=== PATIENT | male | born 1950 | race Caucasian/White ===

== ENCOUNTER 2017-07-26 12:38 | Emergency (ER) | payer MEDICARE ==
--- NOTE | 2017-07-26 13:04 | ER Document Report ---
ED Medical Screen (RME) - General Chief Complaint: Abdominal Pain Stated Complaint: STOMACH PAIN Time Seen by Provider: 07/26/17 12:44 Mode of Arrival: Ambulatory Information source: Patient TRAVEL OUTSIDE OF THE [place] IN LAST 30 DAYS: No - HPI Patient complains to provider of: Right lower quadrant abdominal pain Notes: 07/26/17 13:03 Patient is a 66-year-old male presenting to the emergency room complaining of right lower quadrant abdominal pain that started on Friday after he ate some fried chicken, he reports that on he took some milk of magnesia which assisted him and having a bowel movement, however his pain has persisted, he denies any fever, no nausea or vomiting - Related Data Allergies/Adverse Reactions: Penicillins Allergy (Verified 07/26/17 12:41) Past Medical History Renal/ Medical History: Denies: Hx Peritoneal Dialysis Physical Exam - Vital signs Vitals: Temp Pulse Resp BP Pulse Ox 98.0 F 72 18 142/79 H 96 07/26/17 12:41 07/26/17 12:41 07/26/17 12:41 07/26/17 12:41 07/26/17 12:41 Course - Vital Signs Vital signs: Temp Pulse Resp BP Pulse Ox 98.0 F 72 18 142/79 H 96 07/26/17 12:41 07/26/17 12:41 07/26/17 12:41 07/26/17 12:41 07/26/17 12:41
[2017-07-26 14:15] LABS: APPEARANCE,URINE CLEAR; BILIRUBIN,URINE NEGATIVE (NEGATIVE); GLUCOSE, URINE NEGATIVE (NEGATIVE); KETONES,URINE NEGATIVE (NEGATIVE); LEUKOCYTE ESTERASE,URINE NEGATIVE (NEGATIVE); NITRITE,URINE NEGATIVE (NEGATIVE); PROTEIN,URINE NEGATIVE (NEGATIVE); URINE SPECIFIC GRAVITY 1.021; UROBILINOGEN,URINE NEGATIVE mg/dL (<2.0)
[2017-07-26 14:16] LABS: ABSOLUTE EOSINOPHILS # (AUTO) 0.2 10^3/uL (0.0-0.6); ABSOLUTE LYMPHOCYTES (AUTO) 1.6 10^3/uL (0.5-4.7); ABSOLUTE MONOCYTES (AUTO) 0.5 10^3/uL (0.1-1.4); ABSOLUTE NEUT (AUTO) 3.6 10^3/uL (1.7-8.2); BASOPHILS % (AUTO) 0.8 % (0-2); EOSINOPHILS % (AUTO) 2.8 % (0-6); HEMATOCRIT 39.2 % (37.9-51.0); HEMOGLOBIN 13.5 g/dL (13.5-17.0); HGB HCT DIFFERENCE 1.3; LYMPHOCYTES % (AUTO) 27.3 % (13-45); MEAN CORPUSCULAR HEMOGLOBIN 32.2 pg (27.0-33.4); MEAN CORPUSCULAR HGB CONC 34.4 g/dL (32.0-36.0); MEAN CORPUSCULAR VOLUME 94 fl (80-97); MONOCYTES % (AUTO) 8.5 % (3-13); RED BLOOD COUNT 4.19 10^6/uL (4.35-5.55); RED CELL DISTRIBUTION WIDTH 13.7 % (11.5-14.0); SEGMENTED NEUTROPHILS % (AUTO) 60.6 % (42-78); WHITE BLOOD COUNT 5.9 10^3/uL (4.0-10.5)
[2017-07-26 14:34] LABS: ALANINE AMINOTRANSFERASE 40 U/L (21-72); ALBUMIN 4.3 g/dL (3.5-5.0); ALKALINE PHOSPHATASE 91 U/L (38-126); ANION GAP 13 (5-19); ASPARTATE AMINO TRANSFERASE 24 U/L (17-59); BILIRUBIN,DIRECT 0.3 mg/dL (0.0-0.4); BILIRUBIN,TOTAL 0.5 mg/dL (0.2-1.3); BLOOD UREA NITROGEN 20 mg/dL (7-20); CALCIUM 9.3 mg/dL (8.4-10.2); CARBON DIOXIDE 23 mmol/L (22-30); CHLORIDE 106 mmol/L (98-107); CREATININE RESULT 1.01 mg/dL (0.52-1.25); GLUCOSE 98 mg/dL (75-110); POTASSIUM 4.4 mmol/L (3.6-5.0); SODIUM 141.6 mmol/L (137-145)
--- NOTE | 2017-07-26 16:56 | RADIOLOGY REPORT (SQ) ---
EXAM DESCRIPTION: CT ABD/PELVIS WITH IV ONLY COMPLETED DATE/TIME: 07/26/2017 4:26 pm REASON FOR STUDY: Rlq pain COMPARISON: None. TECHNIQUE: CT scan of the abdomen and pelvis performed using helical scanning technique with dynamic intravenous contrast injection. No oral contrast. Images reviewed with lung, soft tissue, and bone windows. Reconstructed coronal and sagittal MPR images reviewed. Delayed images for evaluation of the urinary system also acquired. All images stored on PACS. All CT scanners at this facility use dose modulation, iterative reconstruction, and/or weight based d osing when appropriate to reduce radiation dose to as low as reasonably achievable (ALARA). [facility]: Dose Right [facility]: CareDose [facility]: Dose Right [facility]: Teradose 4D [facility]: [employer] CONTRAST TYPE AND DOSE: contrast/concentration: Isovue 370.00 mg/ml; Total Contrast Delivered: 100.0 ml; Total Saline Delivered: 72.0 ml RENAL FUNCTION: BUN 20; creatinine 1.01 RADIATION DOSE: Up-to-date CT equipment and radiation dose reduction techniques were employed. CTDIv ol: 20.0 - 20.5 mGy. DLP: 2114 mGy-cm.. LIMITATIONS: None. FINDINGS: LOWER CHEST: No significant findings. No nodules or infiltrates. LIVER: Normal size. Diffusely decreased attenuation, consistent with fatty infiltration. Incidental note is made of 2 simple cysts within the right and left lobes. SPLEEN: Normal size. No focal lesions. PANCREAS: No masses. No significant calcifications. No adjacent inflammation or peripancreatic fluid collections. Pancreatic duct not dilated. GALLBLADDER: No identified stones by CT criteria. No inflammatory changes to suggest cholecystitis. ADRENAL GLANDS: No significant masses or asymmetry. RIGHT KIDNEY AND URETER: No solid masses. There is a prominent nonobstructing nephroliths within th e right collecting system. No hydronephrosis or hydroureter. LEFT KIDNEY AND URETER: No solid masses. No significant calcifications. No hydronephrosis or hydr oureter. AORTA AND VESSELS: Note is made of focal ectasia of the infrarenal abdominal aorta; this is not meet strict imaging criteria for designation as an aneurysm. No dissection. Renal arteries, SMA, celiac wi thout stenosis. RETROPERITONEUM: No retroperitoneal adenopathy, hemorrhage or masses. BOWEL AND PERITONEAL CAVITY: No masses or inflammatory changes. No free fluid or peritoneal masses. APPENDIX: Normal. PELVIS: No mass. No free fluid. Normal bladder. ABDOMINAL WALL: No masses. No hernias. BONES: No significant or acute findings. OTHER: No other significant finding. IMPRESSION: NO SIGNIFICANT OR ACUTE FINDING IN THE ABDOMEN OR PELVIS ON CT SCAN WITH IV CONTRAST. TECHNICAL DOCUMENTATION: JOB ID: [id number] Quality ID # [id number]: Final reports with documentation of one or more dose reduction techniques (e.g., Au tomated exposure control, adjustment of the mA and/or kV according to patient size, use of iterative reconstruction technique) 2010 [employer]- All Rights Reserved
--- NOTE | 2017-07-26 17:07 | ER Document Report ---
ED GI/ - General Chief Complaint: Abdominal Pain Stated Complaint: STOMACH PAIN Time Seen by Provider: 07/26/17 12:44 Mode of Arrival: Ambulatory Information source: Patient Notes: 66 yo male c/o right lower abdominal ache on friday, felt full of gas first, localized to right side Friday. MOM . BM loose bm than normal, fri full bm, little this am. No fever. No nausea or vomiting. NO hx hernia. Does not feel bad. TRAVEL OUTSIDE OF THE [place] IN LAST 30 DAYS: No - Related Data Allergies/Adverse Reactions: Penicillins Allergy (Verified 07/26/17 12:41) Past Medical History - General Information source: Patient - Social History Smoking Status: Former Smoker Chew tobacco use (# tins/day): No Frequency of alcohol use: None Drug Abuse: None Lives with: Spouse/Significant other Family History: Reviewed & Not Pertinent - Past Medical History Cardiac Medical History: Reports: Hx Hypertension Renal/ Medical History: Denies: Hx Peritoneal Dialysis Surgical Hx: Negative Review of Systems - Review of Systems Constitutional: No symptoms reported EENT: No symptoms reported Cardiovascular: No symptoms reported Respiratory: No symptoms reported Gastrointestinal: See HPI Genitourinary: No symptoms reported Male Genitourinary: No symptoms reported Musculoskeletal: No symptoms reported Skin: No symptoms reported Hematologic/Lymphatic: No symptoms reported Neurological/Psychological: No symptoms reported Physical Exam - Vital signs Vitals: Temp Pulse Resp BP Pulse Ox 98.0 F 72 18 142/79 H 96 07/26/17 12:41 07/26/17 12:41 07/26/17 12:41 07/26/17 12:41 07/26/17 12:41 Interpretation: Normal - General General appearance: Appears well, Alert - HEENT Head: Normocephalic, Atraumatic Eyes: Normal Pupils: PERRL - Respiratory Respiratory status: No respiratory distress Chest status: Nontender Breath sounds: Normal Chest palpation: Normal - Cardiovascular Rhythm: Regular Heart sounds: Normal auscultation Murmur: No - Abdominal Inspection: Normal Distension: No distension Bowel sounds: Normal Tenderness: Nontender. No: Tender Organomegaly: No organomegaly Notes: no hernia - Back Back: Normal, Nontender - Extremities General upper extremity: Normal inspection, Nontender, Normal color, Normal ROM , Normal temperature General lower extremity: Normal inspection, Nontender, Normal color, Normal ROM , Normal temperature, Normal weight bearing. No: Jasper's sign - Neurological Neuro grossly intact: Yes Cognition: Normal Orientation: AAOx4 Shauna Coma Scale Eye Opening: Spontaneous [place] Coma Scale Verbal: Oriented [place] Coma Scale Motor: Obeys Commands [place] Coma Scale Total: 15 Speech: Normal Motor strength normal: LUE, RUE, LLE, RLE Sensory: Normal - Psychological Associated symptoms: Normal affect, Normal mood - Skin Skin Temperature: Warm Skin Moisture: Dry Skin Color: Normal Course - Re-evaluation Re-evalutation: 07/26/17 17:28 ct scan shows ectactic infrarenal aorta, called radioloist its 1.3 cm. spoke with pt about all the results. no specific findings for abdomina pain, no hernia when stands, abdomen nontender at this time. 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 dominguez gastroenterolgist Referrals: DAV DOMINGUEZ MD [ACTIVE STAFF] - Follow up as needed
[2017-07-26 18:33] VITALS: BP 136/74
== END 2017-07-26 18:31 | disposition home or self-care (01) ==
LOC: ER 12:38
DX: R10.31 Right lower quadrant pain (principal); I77.811 Abdominal aortic ectasia; K76.89 Other specified diseases of liver; R19.4 Change in bowel habit; I10 Essential (primary) hypertension; F17.200 Nicotine dependence, unspecified, uncomplicated; Z88.0 Allergy status to penicillin
CPT/HCPCS: 36415; 74177; 80053; 81001; 83690; 85025; 99284

== ENCOUNTER 2018-10-09 18:38 | Observation (INO) | payer MEDICARE ==
[2018-10-09] MEDS ORDERED: ASPIRIN 81 MG TABLET, CHEWABLE PO ONE (20:11)
[2018-10-09 20:42] LABS: ABSOLUTE EOSINOPHILS # (AUTO) 0.1 10^3/uL (0.0-0.6); ABSOLUTE LYMPHOCYTES (AUTO) 1.8 10^3/uL (0.5-4.7); ABSOLUTE MONOCYTES (AUTO) 0.4 10^3/uL (0.1-1.4); BASOPHILS % (AUTO) 0.7 % (0-2); EOSINOPHILS % (AUTO) 2.3 % (0-6); HEMATOCRIT 40.9 % (37.9-51.0); LYMPHOCYTES % (AUTO) 28.1 % (13-45); MEAN CORPUSCULAR HEMOGLOBIN 31.9 pg (27.0-33.4); MEAN CORPUSCULAR HGB CONC 34.2 g/dL (32.0-36.0); MEAN CORPUSCULAR VOLUME 93 fl (80-97); MONOCYTES % (AUTO) 6.6 % (3-13); PLATELET COUNT 201 10^3/uL (150-450); RED BLOOD COUNT 4.39 10^6/uL (4.35-5.55); SEGMENTED NEUTROPHILS % (AUTO) 62.3 % (42-78); TOTAL CELLS COUNTED % (AUTO) 100 %; WHITE BLOOD COUNT 6.5 10^3/uL (4.0-10.5)
[2018-10-09 20:57] LABS: ALANINE AMINOTRANSFERASE 31 U/L (21-72); ALBUMIN 4.5 g/dL (3.5-5.0); ALKALINE PHOSPHATASE 90 U/L (38-126); ANION GAP 10 (5-19); ASPARTATE AMINO TRANSFERASE 26 U/L (17-59); BILIRUBIN,DIRECT 0.2 mg/dL (0.0-0.4); BILIRUBIN,TOTAL 0.4 mg/dL (0.2-1.3); BLOOD UREA NITROGEN 18 mg/dL (7-20); CALCIUM 9.6 mg/dL (8.4-10.2); CARBON DIOXIDE 25 mmol/L (22-30); CHLORIDE 106 mmol/L (98-107); CREATINE KINASE 173 U/L (55-170); GLUCOSE 97 mg/dL (75-110); POTASSIUM 4.3 mmol/L (3.6-5.0); SODIUM 141.2 mmol/L (137-145); TOTAL PROTEIN 7.5 g/dL (6.3-8.2)
--- NOTE | 2018-10-09 20:58 | RADIOLOGY REPORT (SQ) ---
EXAM DESCRIPTION: CHEST SINGLE VIEW COMPLETED DATE/TIME: 10/09/2018 8:49 pm REASON FOR STUDY: chest pain COMPARISON: None. EXAM PARAMETERS: NUMBER OF VIEWS: One view. TECHNIQUE: Single frontal radiographic view of the chest acquired. RADIATION DOSE: NA LIMITATIONS: None. FINDINGS: LUNGS AND PLEURA: No opacities, masses or pneumothorax. No pleural effusion. MEDIASTINUM AND HILAR STRUCTURES: No masses. Contour normal. HEART AND VASCULAR STRUCTURES: Heart normal in size. Normal vasculature. BONES: No acute findings. HARDWARE: None in the chest. OTHER: No other significant finding. IMPRESSION: No acute abnormality of the lungs in AP projection. TECHNICAL DOCUMENTATION: JOB ID: [id number]- All Rights Reserved Reading location - IP/workstation name: [email or web address]
[2018-10-09 21:10] LABS: CREATINE KINASE MB 2.53 ng/mL (<4.55)
[2018-10-09 21:11] LABS: TROPONIN I < 0.012 ng/mL
--- NOTE | 2018-10-09 21:58 | ER Document Report ---
ED General - General Chief Complaint: Chest Pain Stated Complaint: CHEST PAIN Time Seen by Provider: 10/09/18 21:01 Notes: 67-year-old male with past history of coronary artery disease with cardiac stent in 2014 presents to the emergency department for chest pain that started a few days ago but became much worse today. He says that the pain is stabbing in nature, hurts when he is breathing and with movement, and radiates to his back and shoulders. He denied diaphoresis, nausea, vomiting, shortness of breath. Denies any recent illness. His table filler is based out of Dr. Kathy Singleton. Patient has not had a recent cardiac stress test, last was in 2014 prior to stenting. TRAVEL OUTSIDE OF THE [place] IN LAST 30 DAYS: No - Related Data Allergies/Adverse Reactions: Penicillins Allergy (Verified 10/09/18 18:45) Past Medical History - General Information source: Patient - Social History Smoking Status: Former Smoker Chew tobacco use (# tins/day): No Frequency of alcohol use: None Drug Abuse: None Family History: Reviewed & Not Pertinent Patient has suicidal ideation: No Patient has homicidal ideation: No - Past Medical History Cardiac Medical History: Reports: Hx Hypertension Renal/ Medical History: Denies: Hx Peritoneal Dialysis Past Surgical History: Reports: Hx Cardiac Surgery - Stent placement Jun 2015 Review of Systems - Review of Systems Constitutional: See HPI EENT: No symptoms reported Cardiovascular: See HPI Respiratory: See HPI Gastrointestinal: See HPI Genitourinary: No symptoms reported Male Genitourinary: No symptoms reported Musculoskeletal: No symptoms reported Skin: No symptoms reported Hematologic/Lymphatic: No symptoms reported Neurological/Psychological: No symptoms reported Physical Exam - Vital signs Vitals: Temp Pulse Resp BP Pulse Ox 98.9 F 73 16 134/70 H 96 10/09/18 18:51 10/09/18 18:51 10/09/18 18:51 10/09/18 18:51 10/09/18 18:51 Interpretation: Normal - Notes Notes: Reviewed vital signs and nursing note as charted by RN. CONSTITUTIONAL: Well-appearing, well-nourished, acting appropriately for age HEAD: Normocephalic, atraumatic, no swelling EYES: PERRL, Conjunctivae clear, no drainage, EOMI, no scleral icterus ENT: External ears without lesions, External auditory canal is patent, TMs without erythema, landmarks clear and well visualized, no rhinorrhea, Pharynx without erythema or lesions, no tonsillar hypertrophy, airway patent, mucous membranes pink and moist NECK: Supple, no cervical lymphadenopathy, no masses CARD: Regular rate and rhythm, no murmurs, no rubs, no gallops, capillary refill < 2 seconds, symmetric pulses RESP: The lungs are clear to auscultation bilaterally, no wheezing, no rales, no rhonchi. Respiratory rate and effort are normal, normal chest excursion. No respiratory distress, no retractions, no stridor, no nasal flaring, no accessory muscle use. ABD/GI: Normal bowel sounds, distended, soft, non-tender, no rebound, no guarding, no palpable organomegaly EXT: Normal ROM in all joints, non-tender to palpation, no effusions, no edema SKIN: Normal color for age and race, warm, dry, good turgor, no acute lesions noted NEURO: No facial asymmetry, moves all extremities equally, motor and sensory function intact Course - Re-evaluation Re-evalutation: 10/09/18 21:57 67-year-old male with history of coronary artery disease status post cardiac stent 15 years ago presents with chest pain that is been going on for a few days and became acutely worse today. He was concerned enough that he wanted to come to the emergency department for assessment. Patient does have hyperlipidemia and is a former smoker, therefore has significant risk factors concerning for cardiac etiology. Patient does take aspirin 81 mg daily, metoprolol, isosorbide Foard hydrate. He quit smoking in 2014 no EtOH no illicits. Initiating a cardiac workup. EKG showed no evidence of STEMI or evidence of ischemia. 10/09/18 23:14 Initial troponin negative. Chest x-ray showed no acute process. Second troponin ordered. Will then contact patient's table filler to discuss disposition. 10/10/18 02:58 Second troponin negative. Called hospitalist for telemetry observation and follow on stress testing. Dr. Goetz accepted patient - Vital Signs Vital signs: Temp Pulse Resp BP Pulse Ox 97.8 F 55 L 19 145/72 H 99 10/10/18 05:05 10/10/18 06:04 10/10/18 05:05 10/10/18 05:05 10/10/18 05:05 - Laboratory Result Diagrams: 10/09/18 20:30 10/09/18 20:30 Laboratory results interpreted by me: 10/09/18 20:30 Creatine Kinase 173 H Discharge - Discharge Clinical Impression: Chest pain Qualifiers: Chest pain type: unspecified Qualified Code(s): R07.9 - Chest pain, unspecified Condition: Stable Disposition: ADMITTED OBSERVATION Admitting Provider: Hospitalist Unit Admitted: Telemetry
[2018-10-10] MEDS ORDERED: MAGNESIUM HYDROXIDE SUSP 30 ML UDCUP PO PRN (03:42)
[2018-10-10] MEDS ORDERED: ONDANSETRON 4 MG TAB.RAPDIS PO PRN (03:42)
[2018-10-10] MEDS ORDERED: MAG HYDROX/AL HYDROX/SIMETH SUSP 30 ML UDCUP PO PRN (03:42)
[2018-10-10] MEDS ORDERED: GLUCAGON,HUMAN RECOMB 1 MG INJ SUBCUT PRN (03:42)
[2018-10-10] MEDS ORDERED: DEXTROSE 40% GEL 15 GM TUBE PO PRN ×2 (03:42)
[2018-10-10] MEDS ORDERED: DEXTROSE 50%-WATER 25 GM/50 ML DISP.SYRIN IV PRN ×2 (03:42)
[2018-10-10] MEDS ORDERED: ONDANSETRON HCL INJ/PF 4 MG/2 ML SDV IV PRN (03:42)
[2018-10-10] MEDS ORDERED: ACETAMINOPHEN 325 MG TABLET PO PRN (03:52)
[2018-10-10] MEDS ORDERED: NICOTINE 21 MG/24 HR PATCH.TD24 TD PRN (03:52)
[2018-10-10] MEDS ORDERED: NITROGLYCERIN 0.4 MG/TAB 25 TAB/BOTTLE SL PRN (03:52)
[2018-10-10] MEDS ORDERED: MORPHINE SULFATE 10 MG/ML INJ IV PRN ×3 (03:52)
[2018-10-10 05:00] LABS: FREE T3 3.88 pg/mL (2.77-5.27)
[2018-10-10 05:14] LABS: THYROID STIMULATING HORMONE 2.39 uIU/mL (0.47-4.68)
--- NOTE | 2018-10-10 06:12 | PDOC H&P ---
History of Present Illness Admission Date/PCP: 10/10/18 03:02 CHRIS ANTUNEZ MD Patient complains of: Chest pain History of Present Illness: MARGARET SOTO is a 67 year old male who presented to the emergency room with a 6-month history of chest pain. He admits that the pain has been intermittently present in episodes lasting a few seconds since its onset but it has significantly worsened over the last 72 hours prior to admission. The pain is now a severe, sharp stabbing left anterior central chest pain, worsened by taking a deep breath or twisting/turning movements of his chest and radiating into his left axilla and down the inside of the left upper arm. The pain has been present on a constant basis at some level for the last 3 days. He denies s imilar previous episodes of this type of pain and indicates that it is not like the pain of his coronary artery disease. He has not identified any additional aggravating or any ameliorating factors for his chest pain. In the emergency room he was found to have a normal cardiac enzymes x2 and an EKG that showed no evidence of acute myocardial injury or ischemia. Due to his past history of significant coronary artery disease requiring cardiac catheterization and stenting it was felt appropriate to admit the patient to observation status and perform Cardiolite stress test later this morning. Past Medical History Cardiac Medical History: Reports: Coronary Artery Disease, Hypertension Denies: DVT, Pulmonary Embolism Pulmonary Medical History: Denies: Asthma, Chronic Obstructive Pulmonary Disease (COPD), Sleep Apnea EENT Medical History: Reports: None Neurological Medical History: Denies: Hemorrhagic CVA, Ischemic CVA, Seizures Endocrine Medical History: Denies: Diabetes Mellitus Type 1, Diabetes Mellitus Type 2, Hyperthyroidism, Hypothyroidism Renal/ Medical History: Denies: Chronic Kidney Disease, Nephrolithiasis Malignancy Medical History: Reports: None GI Medical History: Denies: Cirrhosis, Hepatitis Musculoskeltal Medical History: Denies: Arthritis, Fibromyalgia Skin Medical History: Denies: Eczema, Psoriasis Psychiatric Medical History: Denies: Alcohol Dependency, Substance Abuse, Tobacco Dependency Traumatic Medical History: Reports: None Hematology: Denies: Anemia, Bleeding Tendencies Infectious Medical History: Denies: None Past Surgical History Past Surgical History: Reports: Cardiac Catheterization, Coronary Stent Social History Information Source: Patient Lives with: Spouse/Significant other Smoking Status: Former Smoker Frequency of Alcohol Use: Rare Hx Recreational Drug Use: No Drugs: None Hx Prescription Drug Abuse: No - Advance Directive Resuscitation Status: Full Code Surrogate healthcare decision maker:: Spouse Family History Family History: DM Parental Family History Reviewed: Yes Children Family History Reviewed: No Sibling(s) Family History Reviewed.: Yes Medication/Allergy Allergies/Adverse Reactions: Penicillins Allergy (Verified 10/09/18 18:45) Review of Systems Constitutional: ABSENT: chills, fever(s) Eyes: ABSENT: visual disturbances, other - Ocular pain Ears: ABSENT: hearing changes, other - Ear pain Nose, Mouth, and Throat: ABSENT: mouth pain, sore throat Cardiovascular: PRESENT: as per HPI, chest pain. ABSENT: dyspnea on exertion, edema, orthropnea, palpitations Respiratory: PRESENT: dyspnea. ABSENT: cough, hemoptysis, sputum Gastrointestinal: ABSENT: abdominal pain, constipation, diarrhea, nausea, vomiting Genitourinary: ABSENT: dysuria, hematuria Musculoskeletal: ABSENT: deformity, joint swelling Integumentary: ABSENT: pruritus, rash Neurological: ABSENT: confusion, convulsions, memory loss, syncope, tremor(s) Psychiatric: ABSENT: anxiety, depression Endocrine: ABSENT: cold intolerance, heat intolerance Hematologic/Lymphatic: ABSENT: easy bleeding, easy bruising Physical Exam Vital Signs: Temp Pulse Resp BP Pulse Ox 98.9 F 73 22 H 130/65 H 97 10/09/18 18:51 10/09/18 18:51 10/10/18 04:01 10/10/18 04:01 10/10/18 04:58 Intake & Output 10/08/18 10/09/18 10/10/18 23:59 23:59 23:59 Weight 117.5 kg General appearance: PRESENT: no acute distress, cooperative, obese Head exam: PRESENT: atraumatic, normocephalic Eye exam: PRESENT: conjunctiva pink, EOMI. ABSENT: scleral icterus Ear exam: PRESENT: normal external ear exam. ABSENT: bleeding Mouth exam: PRESENT: dry mucosa, neck supple Neck exam: ABSENT: thyromegaly, tracheal deviation Respiratory exam: PRESENT: chest wall tenderness - Palpation in the submammary area of the left breast reproduces the pain of chief complaint., clear to auscultation jocelyn, symmetrical, unlabored Cardiovascular exam: PRESENT: RRR. ABSENT: clicks, diastolic murmur, gallop, rubs, systolic murmur Pulses: PRESENT: normal radial pulses, normal dorsalis pedis pul Vascular exam: PRESENT: normal capillary refill. ABSENT: pallor GI/Abdominal exam: PRESENT: normal bowel sounds, soft Rectal exam: PRESENT: deferred Extremities exam: ABSENT: joint swelling, pedal edema Musculoskeletal exam: ABSENT: deformity, dislocation Neurological exam: PRESENT: alert, oriented to person, oriented to place, oriented to time, oriented to situation, CN II-XII grossly intact. ABSENT: motor sensory deficit Psychiatric exam: PRESENT: appropriate affect, normal mood Skin exam: PRESENT: dry, pallor, warm. ABSENT: jaundice, rash, urticaria Results Laboratory Results: 10/09/18 20:30 10/09/18 20:30 10/09/18 10/09/18 10/09/18 20:30 20:30 20:30 WBC 6.5 RBC 4.39 Hgb 14.0 Hct 40.9 MCV 93 MCH 31.9 MCHC 34.2 RDW 14.0 Plt Count 201 Seg Neutrophils % 62.3 Lymphocytes % 28.1 Monocytes % 6.6 Eosinophils % 2.3 Basophils % 0.7 Absolute Neutrophils 4.0 Absolute Lymphocytes 1.8 Absolute Monocytes 0.4 Absolute Eosinophils 0.1 Absolute Basophils 0.0 Sodium 141.2 Potassium 4.3 Chloride 106 Carbon Dioxide 25 Anion Gap 10 BUN 18 Creatinine 0.98 Est GFR ( Amer) > 60 Est GFR (Non-Af Amer) > 60 Glucose 97 Calcium 9.6 Total Bilirubin 0.4 AST 26 ALT 31 Alkaline Phosphatase 90 Total Protein 7.5 Albumin 4.5 TSH 2.39 Free T4 1.00 Free T3 pg/mL 3.88 10/09/18 10/09/18 10/10/18 20:30 20:30 00:36 Creatine Kinase 173 H CK-MB (CK-2) 2.53 Troponin I < 0.012 < 0.012 Impressions: Chest X-Ray 10/09/18 20:11 IMPRESSION: No acute abnormality of the lungs in AP projection. Assessment & Plan - Diagnosis (1) Pleuritic chest pain Is this a current diagnosis for this admission?: Yes Plan: Patient's pain would appear to be pleuritic in nature given the sharp stabbing character and the exacerbating factors. This will be managed with morphine sulfate administered intravenously on a sliding scale basis for pain control. (2) CAD (coronary artery disease) Qualifiers: Coronary Disease-Associated Artery/Lesion type: grindstone artery [place] vs. transplanted heart: grindstone heart Associated angina: angina presence unspecified Qualified Code(s): I25.10 - Atherosclerotic heart disease of grindstone coronary artery without angina pectoris Is this a current diagnosis for this admission?: Yes Plan: Patient will be admitted to observation status and serial cardiac enzyme evaluations and EKG assessments will be done. He will also undergo a Cardiolite stress test later this morning for further evaluation of his coronary artery disease status. (3) HTN (hypertension) Qualifiers: Hypertension type: essential hypertension Qualified Code(s): I10 - Essential (primary) hypertension Is this a current diagnosis for this admission?: Yes Plan: Patient will be maintained on his usual antihypertensive therapy after he has completed his Cardiolite stress test. (4) Obesity (BMI 30.0-34.9) Is this a current diagnosis for this admission?: Yes Plan: A dietary consultation will be obtained from the patient since he may receive instruction in lifestyle changes and diet changes to better enhance his cardiac health. - Time Time Spent: 30 to 50 Minutes Critical Time spent with patient: Less than 15 minutes Anticipated discharge: Home - Inpatient Certification Based on my medical assessment, after consideration of the patient's comorbidities, presenting symptoms, or acuity I expect that the services needed warrant INPATIENT care.: No I certify that my determination is in accordance with my understanding of Medicare's requirements for reasonable and necessary INPATIENT services [42 CFR 412.3e].: No Medical Necessity: Need For Continuous Telemetry Monitoring, Need for Pain Control
[2018-10-10 08:08] LABS: ABSOLUTE EOSINOPHILS # (AUTO) 0.2 10^3/uL (0.0-0.6); ABSOLUTE LYMPHOCYTES (AUTO) 1.7 10^3/uL (0.5-4.7); ABSOLUTE MONOCYTES (AUTO) 0.6 10^3/uL (0.1-1.4); ABSOLUTE NEUT (AUTO) 3.7 10^3/uL (1.7-8.2); BASOPHILS % (AUTO) 0.6 % (0-2); EOSINOPHILS % (AUTO) 2.8 % (0-6); HEMATOCRIT 40.2 % (37.9-51.0); LYMPHOCYTES % (AUTO) 26.6 % (13-45); MEAN CORPUSCULAR HEMOGLOBIN 32.3 pg (27.0-33.4); MEAN CORPUSCULAR HGB CONC 34.7 g/dL (32.0-36.0); MEAN CORPUSCULAR VOLUME 93 fl (80-97); MONOCYTES % (AUTO) 9.7 % (3-13); PLATELET COUNT 186 10^3/uL (150-450); RED BLOOD COUNT 4.33 10^6/uL (4.35-5.55); RED CELL DISTRIBUTION WIDTH 13.7 % (11.5-14.0); SEGMENTED NEUTROPHILS % (AUTO) 60.3 % (42-78); TOTAL CELLS COUNTED % (AUTO) 100 %; WHITE BLOOD COUNT 6.2 10^3/uL (4.0-10.5)
[2018-10-10 08:30] LABS: ANION GAP 9 (5-19); BLOOD UREA NITROGEN 17 mg/dL (7-20); CALCIUM 9.3 mg/dL (8.4-10.2); CARBON DIOXIDE 27 mmol/L (22-30); CHLORIDE 106 mmol/L (98-107); CHOLESTEROL 239.41 mg/dL (0-200); CREATINE KINASE 128 U/L (55-170); GLUCOSE 107 mg/dL (75-110); POTASSIUM 4.2 mmol/L (3.6-5.0); SODIUM 141.5 mmol/L (137-145); TRIGLYCERIDES 218 mg/dL (<150)
[2018-10-10 08:41] LABS: DIRECT LDL 155 mg/dL (<100)
[2018-10-10 08:43] LABS: TROPONIN I < 0.012 ng/mL; VLDL CHOLESTEROL 43.6 mg/dL (10-31)
[2018-10-10] MEDS ORDERED: ENOXAPARIN SODIUM INJ 40 MG/0.4 ML DISP.SYRIN SUBCUT SCH (10:00)
[2018-10-10] MEDS ORDERED: FAMOTIDINE 20 MG TABLET PO SCH (10:00)
[2018-10-10] MEDS ORDERED: DOCUSATE SODIUM 100 MG CAPSULE PO SCH (10:00)
[2018-10-10] MEDS ORDERED: REGADENOSON INJ 0.4 MG/5 ML DISP.SYRIN IV ONE (11:12)
--- NOTE | 2018-10-10 12:56 | EKG REPORT ---
SEVERITY:- BORDERLINE ECG - SINUS RHYTHM BORDERLINE T ABNORMALITIES, ANT-LAT LEADS : Confirmed by: Carol Galindo 10-Oct-2018 12:55:25
--- NOTE | 2018-10-10 12:56 | EKG REPORT ---
SEVERITY:- BORDERLINE ECG - SINUS RHYTHM BORDERLINE T WAVE ABNORMALITIES : Confirmed by: Carol Galindo 10-Oct-2018 12:55:31
--- NOTE | 2018-10-10 13:48 | PDOC DISCHARGE SUMMARY ---
General - Admit/Disc Date/PCP Admission Date/Primary Care Provider: 10/10/18 03:02 CHRIS ANTUNEZ MD Discharge Date: 10/10/18 - Discharge Diagnosis (1) Pleuritic chest pain Is this a current diagnosis for this admission?: Yes (2) CAD (coronary artery disease) Is this a current diagnosis for this admission?: Yes (3) HTN (hypertension) Is this a current diagnosis for this admission?: Yes (4) Obesity (BMI 30.0-34.9) Is this a current diagnosis for this admission?: Yes - Additional Information Resuscitation Status: Full Code Prescriptions: Aspirin [Adult Low Dose Aspirin EC] 81 mg PO DAILY #30 tablet. Atorvastatin Calcium [Lipitor 40 mg Tablet] 40 mg PO QHS #30 tablet Home Medications: Acetaminophen [Tylenol 325 mg Tablet] 650 mg PO Q4HP PRN tablet 10/10/18 Aspirin [Adult Low Dose Aspirin EC] 81 mg PO DAILY #30 tablet. 10/10/18 Atorvastatin Calcium [Lipitor 40 mg Tablet] 40 mg PO QHS #30 tablet 10/10/18 Famotidine [Pepcid 20 mg Tablet] 20 mg PO Q12 tablet 10/10/18 Isosorbide Mononitrate [Imdur 60 mg Tablet.er] 60 mg PO DAILY@172910/10/18 Metoprolol Succinate [Toprol Xl 25 mg Tab.sr] 25 mg PO DAILY@172910/10/18 History of Present Illness History of Present Illness: Patient was admitted after presentation as in HPI below: "MARGARET SOTO is a 67 year old male who presented to the emergency room with a 6-month history of chest pain. He admits that the pain has been intermittently present in episodes lasting a few seconds since its onset but it has significantly worsened over the last 72 hours prior to admission. The pain is now a severe, sharp stabbing left anterior central chest pain, worsened by taking a deep breath or twisting/turning movements of his chest and radiating into his left axilla and down the inside of the left upper arm. The pain has been present on a constant basis at some level for the last 3 days. He denies similar previous episodes of this type of pain and indicates that it is not like the pain of his coronary artery disease. He has not identified any additional aggravating or any ameliorating factors for his chest pain. In the emergency room he was found to have a normal cardiac enzymes x2 and an EKG that showed no evidence of acute myocardial injury or ischemia. Due to his past history of significant coronary artery disease requiring cardiac catheterization and sten ting it was felt appropriate to admit the patient to observation status and perform Cardiolite stress test later this morning." Hospital Course Hospital Course: Patient was admitted 24 hours observation. He ruled out for NE with serial troponin x3. He was managed for pain, as is chest pain appears pleuritic. He also has stress Cardiolite done that was negative for ischemia. He also received Pepcid for possible reflux component. Patient doing better now, chest pain controlled with analgesic, he reports the pain is worse with movement. He has being discharged in stable condition. He is to follow-up with his primary care physician within 1 week. 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 Physical Exam Vital Signs: Temp Pulse Resp BP Pulse Ox 97.8 F 64 18 148/68 H 97 10/10/18 13:04 10/10/18 13:04 10/10/18 13:04 10/10/18 13:04 10/10/18 13:04 Intake & Output 10/09/18 10/10/18 10/11/18 06:59 06:59 06:59 Weight 118 kg GENERAL: Well-developed, no acute distress HEENT: Normocephalic/atraumatic NECK supple, no JVD CARDIOVASCULAR: RRR, normal S1-S2, tenderness to palpation left anterior chest and movement LUNGS: CTA bilaterally ABDOMEN: Soft, NT, NL bowel sounds EXTREMITIES: No edema, clubbing, cyanosis NEUROLOGICAL: Alert, oriented x 3, no acute weakness Results Laboratory Results: 10/10/18 07:33 10/10/18 07:33 10/09/18 10/09/18 10/09/18 20:30 20:30 20:30 WBC 6.5 RBC 4.39 Hgb 14.0 Hct 40.9 MCV 93 MCH 31.9 MCHC 34.2 RDW 14.0 Plt Count 201 Seg Neutrophils % 62.3 Lymphocytes % 28.1 Monocytes % 6.6 Eosinophils % 2.3 Basophils % 0.7 Absolute Neutrophils 4.0 Absolute Lymphocytes 1.8 Absolute Monocytes 0.4 Absolute Eosinophils 0.1 Absolute Basophils 0.0 Sodium 141.2 Potassium 4.3 Chloride 106 Carbon Dioxide 25 Anion Gap 10 BUN 18 Creatinine 0.98 Est GFR ( Amer) > 60 Est GFR (Non-Af Amer) > 60 Glucose 97 Calcium 9.6 Magnesium Total Bilirubin 0.4 AST 26 ALT 31 Alkaline Phosphatase 90 Total Protein 7.5 Albumin 4.5 Triglycerides Cholesterol LDL Cholesterol Direct VLDL Cholesterol HDL Cholesterol TSH 2.39 Free T4 1.00 Free T3 pg/mL 3.88 10/10/18 10/10/18 07:33 07:33 WBC 6.2 RBC 4.33 L Hgb 14.0 Hct 40.2 MCV 93 MCH 32.3 MCHC 34.7 RDW 13.7 Plt Count 186 Seg Neutrophils % 60.3 Lymphocytes % 26.6 Monocytes % 9.7 Eosinophils % 2.8 Basophils % 0.6 Absolute Neutrophils 3.7 Absolute Lymphocytes 1.7 Absolute Monocytes 0.6 Absolute Eosinophils 0.2 Absolute Basophils 0.0 Sodium 141.5 Potassium 4.2 Chloride 106 Carbon Dioxide 27 Anion Gap 9 BUN 17 Creatinine 0.94 Est GFR ( Amer) > 60 Est GFR (Non-Af Amer) > 60 Glucose 107 Calcium 9.3 Magnesium 2.2 Total Bilirubin AST ALT Alkaline Phosphatase Total Protein Albumin Triglycerides 218 H Cholesterol 239.41 H LDL Cholesterol Direct 155 H VLDL Cholesterol 43.6 H HDL Cholesterol 33 L TSH Free T4 Free T3 pg/mL 10/09/18 10/09/18 10/10/18 20:30 20:30 00:36 Creatine Kinase 173 H CK-MB (CK-2) 2.53 Troponin I < 0.012 < 0.012 10/10/18 10/10/18 07:33 07:33 Creatine Kinase 128 CK-MB (CK-2) 2.30 Troponin I < 0.012 Impressions: Chest X-Ray 10/09/18 20:11 IMPRESSION: No acute abnormality of the lungs in AP projection. Qualifiers - * PATIENT BEING DISCHARGED WITH ANY OF THE FOLLOWING DIAGNOSIS: No
[2018-10-10 14:16] VITALS: BP 145/72
--- NOTE | 2018-10-12 15:17 | DRAGON STRESS TEST REPORT ---
Intravenous Lexiscan Cardiolite stress test using single photon emmision computerized tomography. Date of procedure: 10/10/2018. Ordering Provider: Dr. Goetz. Patient's status: In Patient. Indication: Chest pain, in a patient with history of coronary artery disease, with cardiac catheterization and stent placement 2014. CORONARY RISK FACTORS: Age, and diabetes mellitus. Resting EKG: Sinus Rhythm. Within Normal Limits. Stress EKG: No changes of ischemia. The patient had no chest pain or discomfort, and there were no arrhythmias seen. Reason for termination: Protocol. Conclusions: Normal EKG and hemodynamic response to IV Lexiscan. Nuclear data: At rest the patient was given 15.21 millicuries of technetium 99m sestamibi injected intravenously. As per protocol rest non gated SPECT images were obtained. Subsequently the patient was given intravenous Lexiscan at a dose of 0.4 mg in 5 mL intravenously, followed by flush with normal saline. Subsequently the stress dose of 47.8 millicuries of technetium 99m sestamibi was injected intravenously. As per protocol stress gated images were obtained. Nuclear interpretation: Review of images showed that there is a small area of perfusion defect involving the apical lateral wall, and both rest and stress images. This area has normal motion contraction and thickening by gated study. The rest of the segments of the myocardium had normal perfusion at rest, and normal perfusion post stress with IV Lexiscan. All segments of the myocardium had normal motion, contraction, and thickening by gated study. T. I D. ratio was normal at 0.89. There is no transient ischemic calcification of the left ventricle. Computer read rest, and stress left ventricular ejection fraction were 63 %, and 66 %, respectively. Conclusion: 1. There is no scintigraphic evidence of Lexiscan induced myocardial ischemia. 2. There is no scintigraphic evidence of myocardial infarction/scar. Recommendations: Aggressive risk factor modification, and treating the underlying co- morbidities, including aggressive treatment of the patient's coronary artery disease.. MTDD
== END 2018-10-10 14:40 | disposition home or self-care (01) ==
LOC: ER 18:38 → EH 10-10 03:02 → 4N 10-10 05:10
PROVIDERS: ADMIT Emergency Medicine; ATTEND Emergency Medicine
DX: R07.81 Pleurodynia (principal); I25.10 Atherosclerotic heart disease of native coronary artery without angina pectoris; I10 Essential (primary) hypertension; E66.9 Obesity, unspecified; R06.00 Dyspnea, unspecified; Z68.34 Body mass index [BMI] 34.0-34.9, adult; Z79.82 Long term (current) use of aspirin; Z79.899 Other long term (current) drug therapy; Z95.5 Presence of coronary angioplasty implant and graft; Z87.891 Personal history of nicotine dependence
CPT/HCPCS: 93005 ×2; 99285; 36415 ×2; 84439; 82553 ×2; 82550 ×2; 83735; 84443; 85025 ×2; 80048; 80053; 84484 ×2; 84481; 80061; 93017; 71045; 78452; 93010 ×2; G0378 ×2; A9500; J2785; A9270; Q9969

== ENCOUNTER 2020-05-21 04:24 | Inpatient (IN) | payer MEDICARE ==
[2020-05-21] MEDS ORDERED: CEFEPIME 2 GM/D5W RTU 2 GM/50 ML RTUPB IV ONE (05:03)
--- NOTE | 2020-05-21 05:11 | ER Document Report ---
ED Respiratory Problem - General TRAVEL OUTSIDE OF THE [place] IN LAST 30 DAYS: No <RAFAEL FERNANDEZ - Last Filed: 05/21/20 08:11> <YASMEEN LAURA - Last Filed: 05/21/20 10:49> - General Chief Complaint: Shortness Of Breath Stated Complaint: DIFFICULTY BREATHING Time Seen by Provider: 05/21/20 04:50 Primary Care Provider: CHRIS ANTUNEZ MD [Primary Care Provider] - Follow up as needed Notes: Patient is a 69 year old male that comes to the Emergency Department for chief complaint of worsening shortness of breath for the past 3 days. Patient states that tonight he woke up and he felt like he could not catch his breath so he came in by ambulance. Ambulance gave him an albuterol treatment after noting some wheezing. Patient was not febrile, he denies fever, he denies chest pain (states he had this several days ago once but it resolved). Patient states he was seen by his primary care and they placed him on Levaquin for pneumonia for 7 days, after this he followed up and they placed him on azithromycin for 5 days, he completed this several days ago. Past medical history of CAD with UT and stent, former smoker with "possible COPD". He denies CHF, PE, or diabetes history is. He lives at home with his family. (RAFAEL FERNANDEZ) - Related Data Allergies/Adverse Reactions: Penicillins Allergy (Verified 05/21/20 05:20) Past Medical History - General Information source: Patient - Social History Smoking Status: Former Smoker Frequency of alcohol use: None Drug Abuse: None Lives with: Family Family History: Reviewed & Not Pertinent - Past Medical History Cardiac Medical History: Reports: Hx Coronary Artery Disease, Hx Hypertension Denies: Hx DVT, Hx Pulmonary Embolism Pulmonary Medical History: Denies: Hx Asthma, Hx COPD, Hx Sleep Apnea Neurological Medical History: Denies: Hx Seizures Endocrine Medical History: Denies: Hx Diabetes Mellitus Type 1, Hx Diabetes Mellitus Type 2, Hx Hyperthyroidism, Hx Hypothyroidism Renal/ Medical History: Denies: Hx Peritoneal Dialysis GI Medical History: Denies: Hx Cirrhosis, Hx Hepatitis Musculoskeletal Medical History: Denies Hx Arthritis, Denies Hx Fibromyalgia Skin Medical History: Denies Hx Eczema, Denies Hx Psoriasis Infectious Medical History: Denies: Hx Hepatitis Past Surgical History: Reports: Hx Cardiac Catheterization, Hx Cardiac Surgery - Stent placement Jun 2015, Hx Coronary Stent - Immunizations Hx Diphtheria, Pertussis, Tetanus Vaccination: Yes <RAFAEL FERNANDEZ - Last Filed: 05/21/20 08:11> Review of Systems - Review of Systems Constitutional: See HPI EENT: No symptoms reported Cardiovascular: See HPI Respiratory: See HPI Gastrointestinal: No symptoms reported Genitourinary: No symptoms reported Male Genitourinary: No symptoms reported Musculoskeletal: No symptoms reported Skin: No symptoms reported Hematologic/Lymphatic: No symptoms reported Neurological/Psychological: No symptoms reported <RAFAEL FERNANDEZ - Last Filed: 05/21/20 08:11> Physical Exam <RAFAEL FERNANDEZ - Last Filed: 05/21/20 08:11> - Vital signs Vitals: Temp 98.4 F 05/21/20 04:24 - Notes Notes: GENERAL: Alert, interacts well. HEAD: Normocephalic, atraumatic. EYES: Pupils equal, round, and reactive to light. Extraocular movements intact. ENT: Oral mucosa moist, tongue midline. Oropharynx unremarkable. Airway patent. NECK: Full range of motion. Supple. Trachea midline. No lymphadenopathy. LUNGS: Rhonchi heard in the right lungs especially in the lower brock. Patient has shortness of breath and panting when attempting to speak in full sentences. However at rest he has no tachypnea or labored breathing. Unremarkable otherwise. HEART: Regular rate and rhythm. No murmur ABDOMEN: Soft, non-tender. Non-distended. EXTREMITIES: Moves all 4 extremities spontaneously. No edema, normal radial and dorsalis pedis pulses bilaterally. No cyanosis. BACK: no cervical, thoracic, lumbar midline tenderness. No saddle anesthesia, normal distal neurovascular exam. Moves all extremities in full range of motion. NEUROLOGICAL: Alert and oriented x3. Normal speech. Cranial nerves II through XII grossly intact. Strength 5/5 in all extremities. PSYCH: Normal affect, normal mood. SKIN: Warm, dry, normal turgor. No rashes or lesions noted. (RAFAEL FERNANDEZ) Course - Laboratory Result Diagrams: 05/21/20 04:45 05/21/20 04:45 <RAFAEL FERNANDEZ - Last Filed: 05/21/20 08:11> - Laboratory Result Diagrams: 05/21/20 04:45 05/21/20 04:45 <YASMEEN LAURA - Last Filed: 05/21/20 10:49> - Re-evaluation Re-evalutation: Patient has obvious shortness of breath when he is attempting to talk, he is rhonchi in the right mid to lower lung brock, physical exam otherwise unremarkable. CBC, chemistry unremarkable. Troponin and BNP are unremarkable. Patient is not hypoxic. Patient is chest x-ray is impressive with obvious pneumonia on the right. Patient is already had treatment including Levaquin and azithromycin. Patient has failed outpatient therapy and has worsening symptoms, shortness of breath with just talking, and patient is 69 years old. Patient has been started on cefepime and vancomycin, he is allergic to penicillin. Blood cultures pending. Discussed with Dr. Mcginnis, recommends admission to the hospitalist. Discussed with Dr. Goetz, hospitalist, he states he will discuss with the day team, he recommends we ambulate the patient with pulse oxygenation testing. Patient ambulated, he became hypoxic down to 87% with labored breathing. 05/21/20 08:[address] Hameed. He request CTA performed and he be contacted with results. Discussed with Annetta Laura PA-C and he will be awaiting the results. (RAFAEL FERNANDEZ) 05/21/20 10:47 Patient signed out to me pending CT scan results. Patient was previously consulted on with Dr. Hameed. CT scan showing mass in association with his consolidation. I discussed with who recommended we keep the patient here for some antibiotics for a few days and then once the patient is stable discharge for outpatient follow-up to bite him for bronc and biopsy. I discussed this with Dr. Hameed who will speak with Dr. Jerry in consultation. (YASMEEN LAURA) - Vital Signs Vital signs: Temp Pulse Resp BP Pulse Ox 98.4 F 85 19 158/76 H 98 05/21/20 05:46 05/21/20 05:46 05/21/20 06:31 05/21/20 07:01 05/21/20 07:01 - Laboratory Laboratory results interpreted by me: 05/21/20 05/21/20 04:45 04:45 RBC 3.86 L Hgb 11.7 L Hct 34.8 L Potassium 3.5 L Glucose 125 H Albumin 3.4 L - EKG Interpretation by Me Additional EKG results interpreted by me: EKG shows sinus rhythm at a rate of 75, QTC of 429, normal axis, no T wave inversions or ST segment changes in consecutive leads (RAFAEL FERNANDEZ) Discharge <RAFAEL FERNANDEZ - Last Filed: 05/21/20 08:11> - Discharge Admitting Provider: Yoseph (Hospitalist) Unit Admitted: Telemetry <YASMEEN LAURA - Last Filed: 05/21/20 10:49> - Discharge Clinical Impression: Shortness of breath, Hypoxia Community acquired pneumonia Qualifiers: Laterality: right Lung location: unspecified part of lung Qualified Code(s): J18.9 - Pneumonia, unspecified organism Condition: Stable Disposition: ADMITTED INPATIENT Referrals: HCRIS ANTUNEZ MD [Primary Care Provider] - Follow up as needed
--- NOTE | 2020-05-21 05:19 | RADIOLOGY REPORT (SQ) ---
EXAM DESCRIPTION: XR CHEST 1 VIEW COMPLETED DATE/TME: 05/21/2020 04:36 CLINICAL HISTORY: 69 years, Male, shortness of breath, recent pneumonia COMPARISON: 10/09/2018 chest NUMBER OF VIEWS: 2 TECHNIQUE: AP chest LIMITATIONS: None. FINDINGS: Heart size normal. Underlying COPD. Extensive airspace opacity of the right upper lobe and right perihilar region. No pneumothorax IMPRESSION: Right upper lobe/right perihilar pneumonia copyright 2010 [employer]- All Rights Reserved
[2020-05-21 05:25] LABS: ABSOLUTE EOSINOPHILS # (AUTO) 0.2 10^3/uL (0.0-0.6); ABSOLUTE LYMPHOCYTES (AUTO) 1.4 10^3/uL (0.5-4.7); ABSOLUTE MONOCYTES (AUTO) 0.5 10^3/uL (0.1-1.4); ABSOLUTE NEUT (AUTO) 3.9 10^3/uL (1.7-8.2); BASOPHILS % (AUTO) 0.5 % (0-2); HEMATOCRIT 34.8 % (37.9-51.0); HEMOGLOBIN 11.7 g/dL (13.5-17.0); LYMPHOCYTES % (AUTO) 22.5 % (13-45); MEAN CORPUSCULAR HEMOGLOBIN 30.4 pg (27.0-33.4); MEAN CORPUSCULAR HGB CONC 33.7 g/dL (32.0-36.0); MEAN CORPUSCULAR VOLUME 90 fl (80-97); MONOCYTES % (AUTO) 8.7 % (3-13); PLATELET COUNT 263 10^3/uL (150-450); RED BLOOD COUNT 3.86 10^6/uL (4.35-5.55); RED CELL DISTRIBUTION WIDTH 13.4 % (11.5-14.0); SEGMENTED NEUTROPHILS % (AUTO) 64.3 % (42-78); TOTAL CELLS COUNTED % (AUTO) 100 %; WHITE BLOOD COUNT 6.1 10^3/uL (4.0-10.5)
[2020-05-21] MEDS ORDERED: VANCOMYCIN HCL INJ 1000 MG VIAL IV ONE (05:40)
[2020-05-21 05:46] LABS: ALBUMIN 3.4 g/dL (3.5-5.0); ALKALINE PHOSPHATASE 83 U/L (38-126); ANION GAP 8 (5-19); ASPARTATE AMINO TRANSFERASE 38 U/L (17-59); BILIRUBIN,TOTAL 0.2 mg/dL (0.2-1.3); BLOOD UREA NITROGEN 11 mg/dL (7-20); CALCIUM 8.6 mg/dL (8.4-10.2); CARBON DIOXIDE 27 mmol/L (22-30); CHLORIDE 105 mmol/L (98-107); GLUCOSE 125 mg/dL (75-110); POTASSIUM 3.5 mmol/L (3.6-5.0); TOTAL PROTEIN 6.3 g/dL (6.3-8.2)
[2020-05-21 05:50] LABS: NT PRO BNP 91 pg/mL (<125)
[2020-05-21 05:51] LABS: TROPONIN I < 0.012 ng/mL
[2020-05-21 07:32] LABS: APPEARANCE,URINE CLEAR; BILIRUBIN,URINE NEGATIVE (NEGATIVE); COLOR,URINE YELLOW; GLUCOSE, URINE NEGATIVE (NEGATIVE); KETONES,URINE NEGATIVE (NEGATIVE); LEUKOCYTE ESTERASE,URINE NEGATIVE (NEGATIVE); NITRITE,URINE NEGATIVE (NEGATIVE); PROTEIN,URINE NEGATIVE (NEGATIVE); UROBILINOGEN,URINE NEGATIVE mg/dL (<2.0)
[2020-05-21] MEDS ORDERED: METHYLPREDNISOLONE INJ 125 MG/2 ML SDV IV ONE (08:09)
--- NOTE | 2020-05-21 08:26 | EKG REPORT ---
SEVERITY:- NORMAL ECG - SINUS RHYTHM : Confirmed by: Ulysses Mcfarland MD 21-May-2020 08:25:42
--- NOTE | 2020-05-21 10:08 | RADIOLOGY REPORT (SQ) ---
EXAM DESCRIPTION: CTA CHEST IMAGES COMPLETED DATE/TIME: 05/21/2020 9:48 am REASON FOR STUDY: unresolved pneumonia COMPARISON: None. TECHNIQUE: CT scan of the chest performed using helical scanning technique with dynamic intravenous contrast injection. Images reviewed with lung, soft tissue and bone windows. Reconstructed coronal and sagittal MPR images reviewed. Additional 3 dimensional post-processing performed to develop Maximal Intensity Projection images (TN P). All images stored on PACS. All CT scanners at this facility use dose modulation, iterative reconstruction, and/or weight based d osing when appropriate to reduce radiation dose to as low as reasonably achievable (ALARA). [facility]: Dose Right [facility]: CareDose [facility]: Dose Right [facility]: Teradose 4D [facility]: Commissioner CONTRAST TYPE AND DOSE: contrast/concentration: Isovue 350.00 mmol/ml; Total Contrast Delivered: 100 .0 ml; Total Saline Delivered: 80.0 ml RENAL FUNCTION: GFR > 60. RADIATION DOSE: CT Rad equipment meets quality standard of care and radiation dose reduction techniq ues were employed. CTDIvol: 5.0 - 39.7 mGy. DLP: 867 mGy-cm. . LIMITATIONS: None. FINDINGS: LUNGS AND PLEURA: Right upper lobe consolidation contiguous with right hilar and mediastin al mass measuring approximately 4.6 x 8.6 cm AP by transverse diameter. Mass encases the right main pulmonary artery and right upper lobe and lower lobe bronchi. Subsegmental airspace disease superior segment right lower lobe. Trace right pleural effusion. AORTA AND GREAT VESSELS: No aneurysm. No dissection. HEART: No pericardial effusion. PULMONARY ARTERIES: No emboli visualized in the main pulmonary arteries or the segmental branches. HILAR AND MEDIASTINAL STRUCTURES: See above. HARDWARE: None in the chest. UPPER ABDOMEN: No significant findings. Limited exam. THYROID AND OTHER SOFT TISSUES: No masses. No adenopathy. BONES: No acute or significant finding. 3D MIPS: Confirm above findings. OTHER: No other significant finding. IMPRESSION: 1. No PE. 2. Right upper lung consolidation associated with right hilar and mediastinal mass suspicious for mal ignancy. Follow-up bronchoscopy recommended for tissue sampling. COMMENT: Quality ID # [id number]: Final reports with documentation of one or more dose reduction techniques (e.g., Automated exposure control, adjustment of the mA and/or kV according to patient size, use of iterative reconstruction technique) TECHNICAL DOCUMENTATION: JOB ID: [id number] 2010 [employer]- All Rights Reserved Reading location - IP/workstation name: [email or web address]
[2020-05-21] MEDS ORDERED: ONDANSETRON 4 MG TAB.RAPDIS PO PRN (13:13)
[2020-05-21] MEDS ORDERED: ACETAMINOPHEN 325 MG TABLET PO PRN (13:13)
[2020-05-21] MEDS ORDERED: ONDANSETRON HCL INJ/PF 4 MG/2 ML SDV IV PRN (13:13)
[2020-05-21] MEDS ORDERED: CEFEPIME 2 GM/D5W RTU 2 GM/50 ML RTUPB IV SCH (14:00)
--- NOTE | 2020-05-21 14:52 | PDOC H&P ---
History of Present Illness Admission Date/PCP: 05/21/20 11:35 CHRIS ANTUNEZ MD History of Present Illness: MARGARET SOTO is a 69 year old male with a past medical history significant for hypertension, tobacco abuse, COPD who presents with dyspnea on exertion and shortness of breath. Patient was treated by his PCP for 7 days with Levaquin, then 5 days of azithromycin and patient's chest x-rays did not show resolution and patient did not seem to improve his respiratory symptoms. He is not have any fevers and his WBC is normal. Called by ED to admit for recurrent pneumonia. I requested that they order a CT of the chest as patient could very well have PE or malignancy or empyema all of which require more detailed assessment and treatment that would normally be given to simple community- acquired pneumonia. CT of the chest was done which did not show PE but did show a large mediastinal lung mass which necessitates biopsy via bronchoscopy. Dr. Jerry was consulted for oncology and he would like the patient admitted for a few days of antibiotics then discharge for follow-up here or patient can have outpatient biopsy. Patient will also be admitted for COPD exacerbation as he is wheezing on exam and has an extensive smoking history though he states he has never been formally diagnosed with COPD. Past Medical History Cardiac Medical History: Reports: Coronary Artery Disease, Hypertension Denies: DVT, Pulmonary Embolism Pulmonary Medical History: Reports: Chronic Obstructive Pulmonary Disease (C OPD), Pneumonia Denies: Asthma, Sleep Apnea Neurological Medical History: Denies: Seizures Endocrine Medical History: Denies: Diabetes Mellitus Type 1, Diabetes Mellitus Type 2, Hyperthyroidism, Hypothyroidism Malignancy Medical History: Reports: Lung Cancer GI Medical History: Denies: Cirrhosis, Hepatitis Musculoskeltal Medical History: Denies: Arthritis, Fibromyalgia Skin Medical History: Denies: Eczema, Psoriasis Hematology: Denies: Anemia, Bleeding Tendencies Past Surgical History Past Surgical History: Reports: Cardiac Catheterization, Coronary Stent Social History Information Source: Patient, Emergency Med Personnel Lives with: Family Smoking Status: Former Smoker Frequency of Alcohol Use: Rare Hx Recreational Drug Use: No Drugs: None Hx Prescription Drug Abuse: No - Advance Directive Resuscitation Status: Full Code Surrogate healthcare decision maker:: Family History Family History: Reviewed & Not Pertinent Parental Family History Reviewed: Yes Children Family History Reviewed: Yes Sibling(s) Family History Reviewed.: Yes Medication/Allergy Home Medications: Isosorbide Mononitrate [Imdur 60 mg Tablet.er] 60 mg PO DAILY 10/10/18 Metoprolol Succinate [Toprol Xl 25 mg Tab.sr] 25 mg PO DAILY 10/10/18 Allergies/Adverse Reactions: Penicillins Allergy (Verified 05/21/20 05:20) Review of Systems All systems: reviewed and no additional remarkable complaints except as stated - As per HPI, otherwise negative Physical Exam Vital Signs: Temp Pulse Resp BP Pulse Ox 98.3 F 85 16 141/76 H 96 05/21/20 14:07 05/21/20 05:46 05/21/20 14:07 05/21/20 14:07 05/21/20 13:31 Intake & Output 05/20/20 05/21/20 05/22/20 06:59 06:59 06:59 Intake Total 50 Balance 50 Weight 112.5 kg General appearance: PRESENT: no acute distress, obese, well-developed, well- nourished Head exam: PRESENT: atraumatic, normocephalic Eye exam: PRESENT: conjunctiva pink Mouth exam: PRESENT: moist Respiratory exam: PRESENT: wheezes - Diffuse. ABSENT: rales, rhonchi Cardiovascular exam: PRESENT: RRR. ABSENT: diastolic murmur, rubs, systolic murmur GI/Abdominal exam: PRESENT: normal bowel sounds, soft. ABSENT: distended, guarding, mass, organolmegaly, rebound, tenderness Neurological exam: PRESENT: alert, awake, oriented to person, oriented to place, oriented to time, oriented to situation Psychiatric exam: PRESENT: appropriate affect, normal mood Skin exam: PRESENT: dry, intact, warm Results Laboratory Results: 05/21/20 04:45 05/21/20 04:45 05/21/20 05/21/20 05/21/20 04:45 04:45 06:49 WBC 6.1 RBC 3.86 L Hgb 11.7 L Hct 34.8 L MCV 90 MCH 30.4 MCHC 33.7 RDW 13.4 Plt Count 263 Seg Neutrophils % 64.3 Sodium 139.6 Potassium 3.5 L Chloride 105 Carbon Dioxide 27 Anion Gap 8 BUN 11 Creatinine 0.79 Est GFR ( Amer) > 60 Glucose 125 H Calcium 8.6 Total Bilirubin 0.2 AST 38 Alkaline Phosphatase 83 Total Protein 6.3 Albumin 3.4 L Urine Color YELLOW Urine Appearance CLEAR Urine pH 6.0 Ur Specific [place] 1.020 Urine Protein NEGATIVE Urine Glucose (UA) NEGATIVE Urine Ketones NEGATIVE Urine Blood NEGATIVE Urine Nitrite NEGATIVE Ur Leukocyte Esterase NEGATIVE Urine WBC (Auto) 1 Urine RBC (Auto) 0 05/21/20 04:45 Troponin I < 0.012 NT-Pro-B Natriuret Pep 91 Impressions: Chest X-Ray 05/21/20 04:36 IMPRESSION: Right upper lobe/right perihilar pneumonia copyright 2011 [employer]- All Rights Reserved Chest/Abdomen CTA 05/21/20 08:08 IMPRESSION: 1. No PE. 2. Right upper lung consolidation associated with right hilar and mediastinal mass suspicious for malignancy. Follow-up bronchoscopy recommended for tissue sampling. Assessment and Plan - Diagnosis (1) Obstructive pneumonia Is this a current diagnosis for this admission?: Yes Plan: Treat with vancomycin/cefepime for an additional 2 days to prepare patient for biopsy per Dr. Jerry's request Vancomycin/cefepime Chest imaging reviewed, shows persistent infiltrates Obstructive pneumonia due to lung mass (2) Lung mass Is this a current diagnosis for this admission?: Yes Plan: Seen on CTPA Needs bronchoscopy with biopsy to be arranged by oncologist Dr. Jerry consulted (3) COPD exacerbation Is this a current diagnosis for this admission?: Yes Plan: New diagnosis per patient, wheezing on exam, extensive smoking history Breo started DuoNeb scheduled Needs outpatient follow-up with pulmonology for PFTs Systemic steroids (4) CAD (coronary artery disease) Qualifiers: Coronary Disease-Associated Artery/Lesion type: [place] artery [place] vs. transplanted heart: [place] heart Associated angina: angina presence unspecified Qualified Code(s): I25.10 - Atherosclerotic heart disease of [place] coronary artery without angina pectoris Is this a current diagnosis for this admission?: Yes Plan: Status post coronary artery stent in the past, no SD in the past per patient (5) HTN (hypertension) Qualifiers: Hypertension type: essential hypertension Qualified Code(s): I10 - Essential (primary) hypertension Is this a current diagnosis for this admission?: Yes (6) Obesity (BMI 30.0-34.9) Is this a current diagnosis for this admission?: Yes Plan: Needs weight loss - Time Time Spent with patient: 35 or more minutes Medications reviewed and adjusted accordingly: Yes Anticipated Discharge Disposition: Home, Self Care Anticipated Discharge Timeframe: within 48 hours - Inpatient Certification Based on my medical assessment, after consideration of the patient's comorbidities, presenting symptoms, or acuity I expect that the services needed warrant INPATIENT care.: Yes I certify that my determination is in accordance with my understanding of Medicare's requirements for reasonable and necessary INPATIENT services [42 CFR 412.3e].: Yes Medical Necessity: Significant Comorbidiites Make Outpatient Treatment Too Risky, Need Close Monitoring Due to Risk of Patient Decompensation, Need for IV Antibiotics, Risk of Complication if Not Cared For in Hospital, Risk of Diagnosis Which Will Require Inpatient Eval/Care/Monitoring
[2020-05-21] MEDS: IPRATROPIUM/ALBUTEROL 0.5-2.5 MG/3 ML AMPUL NEB SCH ×2 (15:08→21:10)
--- NOTE | 2020-05-21 15:20 | ADVANCED CARE ---
- Diagnosis (1) Obstructive pneumonia Diagnosis Current: Yes (2) Lung mass Diagnosis Current: Yes (3) COPD exacerbation Diagnosis Current: Yes (4) CAD (coronary artery disease) Diagnosis Current: Yes (5) HTN (hypertension) Diagnosis Current: Yes (6) Obesity (BMI 30.0-34.9) Diagnosis Current: Yes Attendance: Patient Resuscitation Status: Full Code Discussion: All aspects of code status discussed with patient/POA including cardioversion, chest compressions, and intubation and the patient/POA indicated they wish to be full code MPOA is designated as: Time Spent: Greater than 16 minutes
[2020-05-21] MEDS: CEFEPIME HCL 2 GM in DEXTROSE 5%-WATER 50 ML IV SCH ×2 (15:25→21:19)
[2020-05-21] MEDS: PREDNISONE 20 MG TABLET PO SCH (15:37)
[2020-05-21] MEDS: FLUTICASONE/VILANTEROL 100-25 MCG/DOSE IH SCH (15:39)
[2020-05-21] MEDS ORDERED: VANCOMYCIN HCL INJ 1000 MG VIAL ONE (18:25)
[2020-05-21] MEDS ORDERED: VANCOMYCIN HCL INJ 500 MG VIAL ONE (18:26)
[2020-05-21] MEDS: VANCOMYCIN HCL 1,250 MG in DEXTROSE 5%-WATER 250 ML IV SCH (18:44)
[2020-05-21] MEDS ORDERED: METOPROLOL SUCCINATE 25 MG TAB.SR.24H PO ONE (19:30)
[2020-05-21] MEDS ORDERED: ISOSORBIDE MONONITRATE 60 MG TAB.ER.24H PO ONE (20:00)
[2020-05-22] MEDS: VANCOMYCIN HCL 1,250 MG in DEXTROSE 5%-WATER 250 ML IV SCH ×3 (03:00→18:06)
[2020-05-22] MEDS: CEFEPIME HCL 2 GM in DEXTROSE 5%-WATER 50 ML IV SCH ×3 (05:40→21:29)
[2020-05-22 07:08] LABS: PHOSPHORUS 4.3 mg/dL (2.5-4.5)
--- NOTE | 2020-05-22 08:43 | PDOC CONSULTATION ---
Consultation Consult Date: 05/22/20 Attending physician:: KAMRAN CASTRO Provider Consulted: DENISE LUCAS Consult reason:: Right hilar mass, mediastinal adenopathy in the setting of lifelong smoking History of Present Illness Admission Date/PCP: 05/21/20 11:35 CHRIS ANTUNEZ MD Patient complains of: Shortness of breath, cough, chest pain History of Present Illness: This is a telehealth consult done per Medicare guidelines, patient agrees to go forward with it, he understands the rationale and implications. MARGARET SOTO is a 69 year old male with known history of CAD status post stent placement 4 to 5 years ago, presents with a one-year history of increasing shortness of breath, over the last 6 weeks he has had a persistent cough, nonproductive, no hemoptysis, along with right-sided chest pain/right upper back pain. Ultimately presented because of these complaints and had a CTA of the chest, no PE was found but there was a large right hilar mass with atelectasis along with a mediastinal mass. There was a concern of postobstructive pneumonia. He was admitted for the postobstructive pneumonia for IV antibiotics. He was also admitted for COPD exacerbation. He denies any weight loss. He does have [id number] history of tobacco before quitting. Of note, patient has had history of recent left chest pain as well associated with some diaphoresis. This is been on and off for the last 6 months, sometimes with exertion and sometimes interestingly certain medications of cause this. He sees Dr. Restrepo in [place], interventional cardiology, and recently saw Dr. Brooks here locally. I discussed his case with Dr. Restrepo this morning, who will be doing a telephone consultation with him. Past Medical History Cardiac Medical History: Reports: Coronary Artery Disease, Hypertension Denies: DVT, Pulmonary Embolism Pulmonary Medical History: Reports: Chronic Obstructive Pulmonary Disease (COPD), Pneumonia Denies: Asthma, Sleep Apnea Neurological Medical History: Denies: Seizures Endocrine Medical History: Denies: Diabetes Mellitus Type 1, Diabetes Mellitus Type 2, Hyperthyroidism, Hypothyroidism GI Medical History: Denies: Cirrhosis, Hepatitis Musculoskeltal Medical History: Denies: Arthritis, Fibromyalgia Skin Medical History: Denies: Eczema, Psoriasis Psychiatric Medical History: Reports: Depression Hematology: Denies: Anemia, Bleeding Tendencies Past Surgical History Past Surgical History: Reports: Cardiac Catheterization, Coronary Stent Social History Lives with: Family Smoking Status: Former Smoker Frequency of Alcohol Use: Rare Hx Recreational Drug Use: Yes Drugs: Marijuana Hx Prescription Drug Abuse: No - Advance Directive Resuscitation Status: Full Code Family History Family History: Reviewed & Not Pertinent Parental Family History Reviewed: Yes Children Family History Reviewed: Yes Sibling(s) Family History Reviewed.: Yes Medication/Allergy Home Medications: Isosorbide Mononitrate [Imdur 60 mg Tablet.er] 60 mg PO DAILY 10/10/18 Metoprolol Succinate [Toprol Xl 25 mg Tab.sr] 25 mg PO DAILY 10/10/18 Allergies/Adverse Reactions: Penicillins Allergy (Verified 05/21/20 05:20) levofloxacin [From Levaquin] Adverse Reaction (Verified 05/21/20 15:55) Chest pain Review of Systems Constitutional: ABSENT: chills, fever(s), headache(s), weight gain, weight loss Eyes: ABSENT: visual disturbances Ears: ABSENT: hearing changes Cardiovascular: ABSENT: chest pain, dyspnea on exertion, edema, orthropnea, palpitations Respiratory: ABSENT: cough, hemoptysis Gastrointestinal: ABSENT: abdominal pain, constipation, diarrhea, hematemesis, hematochezia, nausea, vomiting Genitourinary: ABSENT: dysuria, hematuria Musculoskeletal: ABSENT: joint swelling Integumentary: ABSENT: rash, wounds Neurological: ABSENT: abnormal gait, abnormal speech, confusion, dizziness, focal weakness, syncope Psychiatric: ABSENT: anxiety, depression, homidical ideation, suicidal ideation Endocrine: ABSENT: cold intolerance, heat intolerance, polydipsia, polyuria Hematologic/Lymphatic: ABSENT: easy bleeding, easy bruising Physical Exam Vital Signs: Temp Pulse Resp BP Pulse Ox 97.8 F 73 16 115/57 L 92 05/22/20 03:43 05/22/20 03:43 05/22/20 03:43 05/22/20 03:43 05/22/20 03:43 Intake & Output 05/21/20 05/22/20 05/23/20 06:59 06:59 06:59 Intake Total 50 1570 Balance 50 1570 Weight 112.5 kg 113.1 kg General appearance: PRESENT: no acute distress, well-developed, well-nourished Head exam: PRESENT: atraumatic, normocephalic Eye exam: PRESENT: conjunctiva pink, EOMI, PERRLA. ABSENT: scleral icterus Ear exam: PRESENT: normal external ear exam Mouth exam: PRESENT: moist, tongue midline Neck exam: ABSENT: carotid bruit, JVD, lymphadenopathy, thyromegaly Respiratory exam: PRESENT: clear to auscultation jocelyn. ABSENT: rales, rhonchi, wheezes Cardiovascular exam: PRESENT: RRR. ABSENT: diastolic murmur, rubs, systolic murmur Pulses: PRESENT: normal dorsalis pedis pul Vascular exam: PRESENT: normal capillary refill GI/Abdominal exam: PRESENT: normal bowel sounds, soft. ABSENT: distended, gua rding, mass, organolmegaly, rebound, tenderness Rectal exam: PRESENT: deferred Extremities exam: PRESENT: full ROM. ABSENT: calf tenderness, clubbing, pedal edema Neurological exam: PRESENT: alert, awake, oriented to person, oriented to place, oriented to time, oriented to situation, CN II-XII grossly intact. ABSENT: oscar r sensory deficit Psychiatric exam: PRESENT: appropriate affect, normal mood. ABSENT: homicidal ideation, suicidal ideation Skin exam: PRESENT: dry, intact, warm. ABSENT: cyanosis, rash Results Laboratory Results: 05/21/20 04:45 05/21/20 04:45 05/22/20 05:35 Phosphorus 4.3 Magnesium 2.2 05/21/20 04:45 Troponin I < 0.012 NT-Pro-B Natriuret Pep 91 Impressions: Chest X-Ray 05/21/20 04:36 IMPRESSION: Right upper lobe/right perihilar pneumonia copyright 2011 [employer]- All Rights Reserved Chest/Abdomen CTA 05/21/20 08:08 IMPRESSION: 1. No PE. 2. Right upper lung consolidation associated with right hilar and mediastinal mass suspicious for malignancy. Follow-up bronchoscopy recommended for tissue sampling. Status: Image reviewed by me Assessment & Plan - Diagnosis (1) Lung mass Is this a current diagnosis for this admission?: Yes Plan: New lung mass, ultimately will need bronchoscopy which I will facilitate. Suggested to hospitalist team that he needed a few days of IV antibiotics along with treatment of now COPD. He is getting both of these issues treated now. (2) Chest pain Qualifiers: Chest pain type: other chest pain Qualified Code(s): R07.89 - Other chest pain; R07.8 - Other chest pain Is this a current diagnosis for this admission?: Yes Plan: He does have some left-sided chest pain, given his coronary artery disease there is some concern of anginal pain. Although he did have a negative stress test in 2018. I have asked Dr. Restrepo of interventional cardiology to weigh in on this. - Time Time Spent: Greater than 70 Minutes - Inpatient Certification Based on my medical assessment, after consideration of the patient's comorbidities, presenting symptoms, or acuity I expect that the services needed warrant INPATIENT care.: Yes I certify that my determination is in accordance with my understanding of Medicare's requirements for reasonable and necessary INPATIENT services [42 CFR 412.3e].: Yes Medical Necessity: Risk of Complication if Not Cared For in Hospital
[2020-05-22] MEDS: IPRATROPIUM/ALBUTEROL 0.5-2.5 MG/3 ML AMPUL NEB SCH ×4 (08:52→20:09)
[2020-05-22] MEDS: FLUTICASONE/VILANTEROL 100-25 MCG/DOSE IH SCH (09:56)
[2020-05-22] MEDS: ISOSORBIDE MONONITRATE 60 MG TAB.ER.24H PO SCH (09:57)
[2020-05-22] MEDS: PREDNISONE 20 MG TABLET PO SCH (09:57)
[2020-05-22] MEDS: METOPROLOL SUCCINATE 25 MG TAB.SR.24H PO SCH (09:57)
[2020-05-22] MEDS: ENOXAPARIN SODIUM INJ 40 MG/0.4 ML DISP.SYRIN SUBCUT SCH ×2 (09:57→10:31)
[2020-05-22] MEDS ORDERED: VANCOMYCIN HCL INJ 1000 MG VIAL IV SCH (10:00)
[2020-05-22 10:18] LABS: ABSOLUTE BASOPHILS # (AUTO) 0.1 10^3/uL (0.0-0.2); ABSOLUTE LYMPHOCYTES (AUTO) 1.2 10^3/uL (0.5-4.7); ABSOLUTE MONOCYTES (AUTO) 0.6 10^3/uL (0.1-1.4); ABSOLUTE NEUT (AUTO) 9.9 10^3/uL (1.7-8.2); BASOPHILS % (AUTO) 0.8 % (0-2); EOSINOPHILS % (AUTO) 0.1 % (0-6); HEMATOCRIT 35.8 % (37.9-51.0); HEMOGLOBIN 11.9 g/dL (13.5-17.0); LYMPHOCYTES % (AUTO) 10.2 % (13-45); MEAN CORPUSCULAR HEMOGLOBIN 30.1 pg (27.0-33.4); MEAN CORPUSCULAR HGB CONC 33.3 g/dL (32.0-36.0); MEAN CORPUSCULAR VOLUME 91 fl (80-97); MONOCYTES % (AUTO) 4.9 % (3-13); PLATELET COUNT 297 10^3/uL (150-450); RED BLOOD COUNT 3.96 10^6/uL (4.35-5.55); RED CELL DISTRIBUTION WIDTH 13.6 % (11.5-14.0); TOTAL CELLS COUNTED % (AUTO) 100 %; WHITE BLOOD COUNT 11.8 10^3/uL (4.0-10.5)
[2020-05-22] MEDS: DOCUSATE SODIUM 100 MG CAPSULE PO SCH (10:32)
[2020-05-22 10:43] LABS: ANION GAP 8 (5-19); BLOOD UREA NITROGEN 15 mg/dL (7-20); CALCIUM 9.1 mg/dL (8.4-10.2); CARBON DIOXIDE 26 mmol/L (22-30); CHLORIDE 103 mmol/L (98-107); GLUCOSE 122 mg/dL (75-110); POTASSIUM 4.1 mmol/L (3.6-5.0)
[2020-05-22 10:49] LABS: VANCOMYCIN,TROUGH 12.5 ug/mL (5.0-20.0)
--- NOTE | 2020-05-22 14:03 | PDOC CONSULTATION ---
Consultation Consult Date: 05/22/20 Attending physician:: KAMRAN CASTRO Provider Consulted: PAWEL ROBLES Consult reason:: Chest pain, coronary artery disease History of Present Illness Admission Date/PCP: 05/21/20 11:35 CHRIS ANTUNEZ MD History of Present Illness: MARGARET SOTO is a 69 year old male 69-year-old male with the following active problems 1. COPD 2. Nicotine dependence 3. Systemic hypertension 4. Dyslipidemia 5. Coronary artery disease 7. PCI 4 years ago Patient was admitted to the hospital based on respiratory symptoms. CT scan of the chest showed possible lung mass which requires further work-up. Oncology has seen the patient. Patient also reports chest pain. He reports spasmodic chest pain on the left lateral chest. He denies a positional component but this description of symptoms is not suggestive of typical angina. Since admission to the hospital his cardiac biomarker has been negative. Presently does not report chest pain. Past Medical History Cardiac Medical History: Reports: Coronary Artery Disease, Hypertension Denies: DVT, Pulmonary Embolism Pulmonary Medical History: Reports: Chronic Obstructive Pulmonary Disease (COPD), Pneumonia Denies: Asthma, Sleep Apnea Neurological Medical History: Denies: Seizures Endocrine Medical History: Denies: Diabetes Mellitus Type 1, Diabetes Mellitus Type 2, Hyperthyroidism, Hypothyroidism Malignancy Medical History: Reports: Lung Cancer GI Medical History: Denies: Cirrhosis, Hepatitis Musculoskeltal Medical History: Denies: Arthritis, Fibromyalgia Skin Medical History: Denies: Eczema, Psoriasis Psychiatric Medical History: Reports: Depression Hematology: Denies: Anemia, Bleeding Tendencies Past Surgical History Past Surgical History: Reports: Cardiac Catheterization, Coronary Stent Social History Lives with: Family Smoking Status: Former Smoker Frequency of Alcohol Use: Rare Hx Recreational Drug Use: Yes Drugs: Marijuana Hx Prescription Drug Abuse: No - Advance Directive Resuscitation Status: Full Code Family History Family History: Reviewed & Not Pertinent Parental Family History Reviewed: Yes - No familial illnesses reported to wv Children Family History Reviewed: NA Sibling(s) Family History Reviewed.: NA Medication/Allergy Home Medications: Isosorbide Mononitrate [Imdur 60 mg Tablet.er] 60 mg PO DAILY 10/10/18 Metoprolol Succinate [Toprol Xl 25 mg Tab.sr] 25 mg PO DAILY 10/10/18 Allergies/Adverse Reactions: Penicillins Allergy (Verified 05/21/20 05:20) levofloxacin [From Levaquin] Adverse Reaction (Verified 05/21/20 15:55) Chest pain Review of Systems Constitutional: PRESENT: as per HPI Eyes: PRESENT: as per HPI Cardiovascular: PRESENT: chest pain Respiratory: PRESENT: cough Physical Exam Vital Signs: Temp Pulse Resp BP Pulse Ox 97.7 F 82 25 H 153/52 H 96 05/22/20 09:03 05/22/20 09:03 05/22/20 09:03 05/22/20 09:03 05/22/20 09:03 Intake & Output 05/21/20 05/22/20 05/23/20 06:59 06:59 06:59 Intake Total 50 1570 Balance 50 1570 Weight 112.5 kg 113.1 kg General appearance: PRESENT: no acute distress, cooperative, well-developed, well-nourished Head exam: PRESENT: atraumatic Eye exam: PRESENT: conjunctiva pink, EOMI Respiratory exam: PRESENT: decreased breath sounds, symmetrical, unlabored Cardiovascular exam: PRESENT: RRR, +S1, +S2 Pulses: PRESENT: normal radial pulses GI/Abdominal exam: PRESENT: soft Rectal exam: PRESENT: deferred Musculoskeletal exam: PRESENT: normal inspection Neurological exam: PRESENT: alert, awake, oriented to person, oriented to place, oriented to time Psychiatric exam: PRESENT: appropriate affect Skin exam: PRESENT: dry, intact Results Laboratory Results: 05/22/20 09:48 05/22/20 09:48 05/22/20 05/22/20 05/22/20 05:35 09:48 09:48 WBC 11.8 H RBC 3.96 L Hgb 11.9 L Hct 35.8 L MCV 91 MCH 30.1 MCHC 33.3 RDW 13.6 Plt Count 297 Seg Neutrophils % 84.0 H Sodium 137.0 Potassium 4.1 Chloride 103 Carbon Dioxide 26 Anion Gap 8 BUN 15 Creatinine 0.77 Est GFR ( Amer) > 60 Glucose 122 H Calcium 9.1 Phosphorus 4.3 Magnesium 2.2 05/21/20 04:45 Troponin I < 0.012 NT-Pro-B Natriuret Pep 91 Impressions: Chest X-Ray 05/21/20 04:36 IMPRESSION: Right upper lobe/right perihilar pneumonia copyright 2011 [employer]- All Rights Reserved Chest/Abdomen CTA 05/21/20 08:08 IMPRESSION: 1. No PE. 2. Right upper lung consolidation associated with right hilar and mediastinal mass suspicious for malignancy. Follow-up bronchoscopy recommended for tissue sampling. Assessment & Plan - Diagnosis (1) Chest pain Qualifiers: Chest pain type: other chest pain Qualified Code(s): R07.89 - Other chest pain; R07.8 - Other chest pain Is this a current diagnosis for this admission?: Yes Plan: Description of chest pain is not suggestive of myocardial ischemia. Furthermore EKG does not show any evidence of myocardial ischemia and his cardiac biomarkers negative x1 Patient should be able to pursue bronchoscopy or imaging guided biopsy procedures without further re-stratification. If extensive surgery is required stress test may be reasonable to pursue. (2) CAD (coronary artery disease) Qualifiers: Coronary Disease-Associated Artery/Lesion type: [place] artery [place] vs. transplanted heart: [place] heart Associated angina: angina presence unspecified Qualified Code(s): I25.10 - Atherosclerotic heart disease of [place] coronary artery without angina pectoris Is this a current diagnosis for this admission?: Yes Plan: Patient reports stents from approximately 4 years ago Continue aspirin 81 mg daily. Aspirin therapy can be interrupted for invasive procedures including biopsy Continue metoprolol succinate 25 mg daily Consider statin (3) Lung mass Is this a current diagnosis for this admission?: Yes Plan: Work-up per oncology for this new finding. - Notes Notes: It the moment
[2020-05-22] MEDS ORDERED: ONDANSETRON HCL INJ/PF 4 MG/2 ML SDV IV PRN (14:30)
[2020-05-22] MEDS ORDERED: ONDANSETRON 4 MG TAB.RAPDIS PO PRN (14:30)
--- NOTE | 2020-05-22 17:12 | PDOC PROGRESS REPORT ---
Subjective Progress Note for:: 05/22/20 Subjective:: Patient still having some cough today. Denies chest pain today. Mild shortness of breath. When asked about his lung mass, he is not clear on what the plans are in terms of bronchoscopy to pursue tissue diagnosis of his lung mass. Reason For Visit: LUNG MASS, COPD EXACERBATION Physical Exam Vital Signs: Temp Pulse Resp BP Pulse Ox 97.8 F 79 20 146/64 H 97 05/22/20 12:57 05/22/20 15:24 05/22/20 15:24 05/22/20 12:57 05/22/20 15:24 Intake & Output 05/21/20 05/22/20 05/23/20 06:59 06:59 06:59 Intake Total 50 1570 475 Balance 50 1570 475 Weight 112.5 kg 113.1 kg General appearance: PRESENT: no acute distress, cooperative Neck exam: ABSENT: JVD Respiratory exam: PRESENT: rales, symmetrical, unlabored. ABSENT: tachypnea, wheezes Cardiovascular exam: PRESENT: RRR, +S1, +S2. ABSENT: tachycardia GI/Abdominal exam: PRESENT: soft. ABSENT: rigid, tenderness Neurological exam: PRESENT: alert, awake, oriented to person, oriented to place, oriented to time Results Laboratory Results: 05/22/20 09:48 05/22/20 09:48 05/22/20 05/22/20 05/22/20 05:35 09:48 09:48 WBC 11.8 H RBC 3.96 L Hgb 11.9 L Hct 35.8 L MCV 91 MCH 30.1 MCHC 33.3 RDW 13.6 Plt Count 297 Seg Neutrophils % 84.0 H Sodium 137.0 Potassium 4.1 Chloride 103 Carbon Dioxide 26 Anion Gap 8 BUN 15 Creatinine 0.77 Est GFR ( Amer) > 60 Glucose 122 H Calcium 9.1 Phosphorus 4.3 Magnesium 2.2 05/21/20 04:45 Troponin I < 0.012 NT-Pro-B Natriuret Pep 91 Impressions: Chest X-Ray 05/21/20 04:36 IMPRESSION: Right upper lobe/right perihilar pneumonia copyright 2011 [email or web address]- All Rights Reserved Chest/Abdomen CTA 05/21/20 08:08 IMPRESSION: 1. No PE. 2. Right upper lung consolidation associated with right hilar and mediastinal mass suspicious for malignancy. Follow-up bronchoscopy recommended for tissue sampling. Assessment and Plan - Diagnosis (1) Obstructive pneumonia Is this a current diagnosis for this admission?: Yes Plan: Patient currently is on vancomycin and cefepime which I will continue. Notably, patient has received full treatment courses of Levaquin and azithromycin in the outpatient setting recently for this possible right-sided pneumonia. Hence at this point, I am not sure that there is much healed to continuing IV antibiotics much longer. We will give antibiotics today and reevaluate situation. On my review of chest CT image, it seems patient has very significant interstitial infiltrates in the right lung and not just anuel consolidation. COVID-19 test is pending. (2) Lung mass Is this a current diagnosis for this admission?: Yes Plan: Dr. Jerry is working on scheduling patient for bronchoscopy with biopsy for tissue diagnosis. I will coordinate with oncology. (3) COPD exacerbation Is this a current diagnosis for this admission?: Yes Plan: Continue duo nebs and prednisone. Currently on Breo as well. (4) CAD (coronary artery disease) Qualifiers: Coronary Disease-Associated Artery/Lesion type: [place] artery [place] vs. transplanted heart: [place] heart Associated angina: angina presence unspecified Qualified Code(s): I25.10 - Atherosclerotic heart disease of [place] coronary artery without angina pectoris Is this a current diagnosis for this admission?: Yes Plan: Patient reports cardiac stenting 4 years ago. Continue metoprolol succinate. I will keep aspirin on hold in case biopsy is pursued soon. Evaluated by cardiology for risk stratification prior to bronchoscopy. - Time Time Spent with patient: 15-24 minutes Anticipated Discharge Disposition: Home, Self Care Anticipated Discharge Timeframe: undetermined
[2020-05-23] MEDS: VANCOMYCIN HCL 1,250 MG in DEXTROSE 5%-WATER 250 ML IV SCH ×2 (02:31→11:21)
[2020-05-23] MEDS: CEFEPIME HCL 2 GM in DEXTROSE 5%-WATER 50 ML IV SCH ×2 (06:05→13:07)
--- NOTE | 2020-05-23 08:42 | PDOC PROGRESS REPORT ---
Subjective Progress Note for:: 05/23/20 Subjective:: No acute events overnight. Patient feeling better. Not wheezing today. Not on oxygen currently. Feels ready to go home. Reason For Visit: LUNG MASS, COPD EXACERBATION Physical Exam Vital Signs: Temp Pulse Resp BP Pulse Ox 97.4 F 62 20 120/43 L 95 05/23/20 02:46 05/23/20 02:46 05/23/20 02:46 05/23/20 02:46 05/23/20 02:46 Intake & Output 05/22/20 05/23/20 05/24/20 06:59 06:59 06:59 Intake Total 1570 1435 Balance 1570 1435 Weight 113.1 kg 114.9 kg General appearance: PRESENT: no acute distress, well-developed, well-nourished Head exam: PRESENT: atraumatic, normocephalic Eye exam: PRESENT: conjunctiva pink, EOMI, PERRLA. ABSENT: scleral icterus Ear exam: PRESENT: normal external ear exam Mouth exam: PRESENT: moist, tongue midline Neck exam: ABSENT: carotid bruit, JVD, lymphadenopathy, thyromegaly Respiratory exam: PRESENT: clear to auscultation jocelyn. ABSENT: rales, rhonchi, wheezes Cardiovascular exam: PRESENT: RRR. ABSENT: diastolic murmur, rubs, systolic murmur Pulses: PRESENT: normal dorsalis pedis pul Vascular exam: PRESENT: normal capillary refill GI/Abdominal exam: PRESENT: normal bowel sounds, soft. ABSENT: distended, guarding, mass, organolmegaly, rebound, tenderness Rectal exam: PRESENT: deferred Extremities exam: PRESENT: full ROM. ABSENT: calf tenderness, clubbing, pedal edema Neurological exam: PRESENT: alert, awake, oriented to person, oriented to place, oriented to time, oriented to situation, CN II-XII grossly intact. ABSENT: motor sensory deficit Psychiatric exam: PRESENT: appropriate affect, normal mood. ABSENT: homicidal ideation, suicidal ideation Skin exam: PRESENT: dry, intact, warm. ABSENT: cyanosis, rash Results Laboratory Results: 05/22/20 09:48 05/22/20 09:48 05/22/20 05/22/20 09:48 09:48 WBC 11.8 H RBC 3.96 L Hgb 11.9 L Hct 35.8 L MCV 91 MCH 30.1 MCHC 33.3 RDW 13.6 Plt Count 297 Seg Neutrophils % 84.0 H Sodium 137.0 Potassium 4.1 Chloride 103 Carbon Dioxide 26 Anion Gap 8 BUN 15 Creatinine 0.77 Est GFR ( Amer) > 60 Glucose 122 H Calcium 9.1 05/21/20 04:45 Troponin I < 0.012 NT-Pro-B Natriuret Pep 91 Impressions: Chest X-Ray 05/21/20 04:36 IMPRESSION: Right upper lobe/right perihilar pneumonia copyright 2011 [employer]- All Rights Reserved Chest/Abdomen CTA 05/21/20 08:08 IMPRESSION: 1. No PE. 2. Right upper lung consolidation associated with right hilar and mediastinal mass suspicious for malignancy. Follow-up bronchoscopy recommended for tissue sampling. Assessment & Plan - Diagnosis (1) Lung mass Is this a current diagnosis for this admission?: Yes Plan: Plan for outpatient bronchoscopy, will see patient in office on . We will give him appointment time today. (2) Chest pain Qualifiers: Chest pain type: other chest pain Qualified Code(s): R07.89 - Other chest pain; R07.8 - Other chest pain Is this a current diagnosis for this admission?: Yes Plan: Cardiology saw him and notes that he should proceed with bronchoscopy, low risk for cardiac event. (3) COPD exacerbation Is this a current diagnosis for this admission?: Yes Plan: Asked hospitalist team to send patient with nebulizer/inhalers. (4) Obstructive pneumonia Is this a current diagnosis for this admission?: Yes Plan: Improved, send patient with 3 to 4 days of oral Augmentin. - Time Time Spent with patient: 35 or more minutes Anticipated discharge: Home
[2020-05-23] MEDS: IPRATROPIUM/ALBUTEROL 0.5-2.5 MG/3 ML AMPUL NEB SCH ×2 (10:09→13:02)
[2020-05-23] MEDS: DOCUSATE SODIUM 100 MG CAPSULE PO SCH (11:16)
[2020-05-23] MEDS: ENOXAPARIN SODIUM INJ 40 MG/0.4 ML DISP.SYRIN SUBCUT SCH (11:19)
[2020-05-23] MEDS: ISOSORBIDE MONONITRATE 60 MG TAB.ER.24H PO SCH (11:22)
[2020-05-23] MEDS: PREDNISONE 20 MG TABLET PO SCH (11:22)
[2020-05-23] MEDS: METOPROLOL SUCCINATE 25 MG TAB.SR.24H PO SCH (11:22)
[2020-05-23] MEDS: FLUTICASONE/VILANTEROL 100-25 MCG/DOSE IH SCH (11:23)
[2020-05-23 13:14] VITALS: BP 141/76
--- NOTE | 2020-05-23 13:14 | PDOC DISCHARGE SUMMARY ---
Impression - Admit/DC Date/PCP Admission Date/Primary Care Provider: 05/21/20 11:35 CHRIS ANTUNEZ MD Discharge Date: 05/23/20 - Discharge Diagnosis (1) Obstructive pneumonia Is this a current diagnosis for this admission?: Yes (2) Lung mass Is this a current diagnosis for this admission?: Yes (3) COPD exacerbation Is this a current diagnosis for this admission?: Yes (4) CAD (coronary artery disease) Is this a current diagnosis for this admission?: Yes - Additional Information Resuscitation Status: Full Code Discharge Diet: As Tolerated Discharge Activity: Activity As Tolerated Referrals: DENISE JERRY MD [ACTIVE STAFF] - 05/25/20 2:30 pm CHRIS ANTUNEZ MD [Primary Care Provider] - Follow up as needed Prescriptions: Cefdinir 300 mg PO Q12 5 Days #10 capsule Prednisone [Deltasone 20 mg Tablet] 40 mg PO DAILY 4 Days #8 tablet Albuterol Sulfate [Ventolin 0.083% Neb 2.5 mg/3 mL Ampul] 2.5 mg NEB Q6HP PRN #30 vial.neb PRN Reason: Home Medications: Isosorbide Mononitrate [Imdur 60 mg Tablet.er] 60 mg PO DAILY 10/10/18 Metoprolol Succinate [Toprol Xl 25 mg Tab.sr] 25 mg PO DAILY 10/10/18 Albuterol Sulfate [Ventolin 0.083% Neb 2.5 mg/3 mL Ampul] 2.5 mg NEB Q6HP PRN #30 vial.neb 05/23/20 Cefdinir 300 mg PO Q12 5 Days #10 capsule 05/23/20 Prednisone [Deltasone 20 mg Tablet] 40 mg PO DAILY 4 Days #8 tablet 05/23/20 History of Present Illiness History of Present Illness: According to admitting provider: MARGARET SOTO is a 69 year old male with a past medical history significant for hypertension, tobacco abuse, COPD who presents with dyspnea on exertion and shortness of breath. Patient was treated by his PCP for 7 days with Levaquin, then 5 days of azithromycin and patient's chest x-rays did not show resolution and patient did not seem to improve his respiratory symptoms. He is not have any fevers and his WBC is normal. Called by ED to admit for recurrent pneumonia. I requested that they order a CT of the chest as patient could very well have PE or malignancy or empyema all of which require more detailed assessment and treatment that would normally be given to simple community-acquired pneumonia. CT of the chest was done which did not show PE but did show a large mediastinal lung mass which necessitates biopsy via bronchoscopy. Dr. Jerry was consulted for oncology and he would like the patient admitted for a few days of antibiotics then discharge for follow-up here or patient can have outpatient biopsy. Patient will also be admitted for COPD exacerbation as he is wheezing on exam and has an extensive smoking history though he states he has never been formally diagnosed with COPD. Hospital Course Hospital Course: Patient was admitted to the hospital for treatment of possible COPD exacerbation. He was also noted to have infiltrates in his right lung on CT of the chest which did not demonstrate any evidence of pulmonary embolism. The CTA did show evidence of his right lung mass. Regarding this obstructive pneumonia, notably patient has already received treatment with Levaquin as well as azithromycin in the outpatient setting and has completed treatment for this. He was started here on vancomycin and cefepime. It is my believe the patient may not need that much more treatment with antibiotics at this point given that he has already been extensively treated. Plan was to discharge patient with Augmentin but due to patient's penicillin allergy I decided to put patient on cefdinir for 5 more days. Patient was treated for possible COPD exacerbation even though he has never been officially diagnosed with COPD. He did have wheezing on admission and does have an extensive smoking history and very well may have underlying COPD. He was treated with nebulizers as well as steroids. I will be discharging him on prednisone for a few days as well as albuterol with a nebulizer machine which has been set up through discharge planning. 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 Regarding patient's lung mass, I have discussed this with Dr. Yadi grande who has informed me that patient has been set up with provider and pulmonology to have an outpatient bronchoscopy with biopsy performed to get tissue diagnosis before treatment can be initiated. He was seen by Dr. Margaret bullock for pre-procedural cardiac risk stratification during this hospitalization. Patient is doing well and has remained off all oxygen. He has been satting in the high 90s to 100% on room air during this hospitalization. COVID 19 test was done on admission and result is negative. Physical Exam Vital Signs: Temp Pulse Resp BP Pulse Ox 97.6 F 66 16 149/83 H 100 05/23/20 10:21 05/23/20 10:21 05/23/20 10:21 05/23/20 10:21 05/23/20 10:21 Intake & Output 05/22/20 05/23/20 05/24/20 06:59 06:59 06:59 Intake Total 1570 1435 Balance 1570 1435 Weight 113.1 kg 114.9 kg General appearance: PRESENT: no acute distress, cooperative Neck exam: ABSENT: JVD Respiratory exam: PRESENT: clear to auscultation jocelyn, symmetrical, unlabored. ABSENT: tachypnea Cardiovascular exam: PRESENT: +S1, +S2 Neurological exam: PRESENT: alert, awake Results Laboratory Results: WBC 11.8 10^3/uL (4.0-10.5) H 05/22/20 09:48 RBC 3.96 10^6/uL (4.35-5.55) L 05/22/20 09:48 Hgb 11.9 g/dL (13.5-17.0) L 05/22/20 09:48 Hct 35.8 % (37.9-51.0) L 05/22/20 09:48 MCV 91 fl (80-97) 05/22/20 09:48 MCH 30.1 pg (27.0-33.4) 05/22/20 09:48 MCHC 33.3 g/dL (32.0-36.0) 05/22/20 09:48 RDW 13.6 % (11.5-14.0) 05/22/20 09:48 Plt Count 297 10^3/uL (150-450) 05/22/20 09:48 Lymph % (Auto) 10.2 % (13-45) L 05/22/20 09:48 [place] % (Auto) 4.9 % (3-13) 05/22/20 09:48 Eos % (Auto) 0.1 % (0-6) 05/22/20 09:48 Baso % (Auto) 0.8 % (0-2) 05/22/20 09:48 Absolute Neuts (auto) 9.9 10^3/uL (1.7-8.2) H 05/22/20 09:48 Absolute Lymphs (auto) 1.2 10^3/uL (0.5-4.7) 05/22/20 09:48 Absolute Monos (auto) 0.6 10^3/uL (0.1-1.4) 05/22/20 09:48 Absolute Eos (auto) 0.0 10^3/uL (0.0-0.6) 05/22/20 09:48 Absolute Basos (auto) 0.1 10^3/uL (0.0-0.2) 05/22/20 09:48 Seg Neutrophils % 84.0 % (42-78) H 05/22/20 09:48 Sodium 137.0 mmol/L (137-145) 05/22/20 09:48 Potassium 4.1 mmol/L (3.6-5.0) 05/22/20 09:48 Chloride 103 mmol/L (98-107) 05/22/20 09:48 Carbon Dioxide 26 mmol/L (22-30) 05/22/20 09:48 Anion Gap 8 (5-19) 05/22/20 09:48 BUN 15 mg/dL (7-20) 05/22/20 09:48 Creatinine 0.77 mg/dL (0.52-1.25) 05/22/20 09:48 Est GFR ( Amer) > 60 (>60) 05/22/20 09:48 Est GFR (MDRD) Non-Af > 60 (>60) 05/22/20 09:48 Glucose 122 mg/dL (75-110) H 05/22/20 09:48 Calcium 9.1 mg/dL (8.4-10.2) 05/22/20 09:48 Phosphorus 4.3 mg/dL (2.5-4.5) 05/22/20 05:35 Magnesium 2.2 mg/dL (1.6-2.3) 05/22/20 05:35 Total Bilirubin 0.2 mg/dL (0.2-1.3) 05/21/20 04:45 Direct Bilirubin 0.0 mg/dL (0.0-0.4) 05/21/20 04:45 Neonat Total Bilirubin Not Reportable 05/21/20 04:45 Neonat Direct Bilirubin Not Reportable 05/21/20 04:45 Neonat Indirect Bili Not Reportable 05/21/20 04:45 AST 38 U/L (17-59) 05/21/20 04:45 ALT 23 U/L (<50) 05/21/20 04:45 Alkaline Phosphatase 83 U/L (38-126) 05/21/20 04:45 Troponin I < 0.012 ng/mL 05/21/20 04:45 NT-Pro-B Natriuret Pep 91 pg/mL (<125) 05/21/20 04:45 Total Protein 6.3 g/dL (6.3-8.2) 05/21/20 04:45 Albumin 3.4 g/dL (3.5-5.0) L 05/21/20 04:45 Urine Color YELLOW 05/21/20 06:49 Urine Appearance CLEAR 05/21/20 06:49 Urine pH 6.0 (5.0-9.0) 05/21/20 06:49 Ur Specific [place] 1.020 05/21/20 06:49 Urine Protein NEGATIVE mg/dL (NEGATIVE) 05/21/20 06:49 Urine Glucose (UA) NEGATIVE mg/dL (NEGATIVE) 05/21/20 06:49 Urine Ketones NEGATIVE mg/dL (NEGATIVE) 05/21/20 06:49 Urine Blood NEGATIVE (NEGATIVE) 05/21/20 06:49 Urine Nitrite NEGATIVE (NEGATIVE) 05/21/20 06:49 Urine Bilirubin NEGATIVE (NEGATIVE) 05/21/20 06:49 Urine Urobilinogen NEGATIVE mg/dL (<2.0) 05/21/20 06:49 Ur Leukocyte Esterase NEGATIVE (NEGATIVE) 05/21/20 06:49 Urine WBC (Auto) 1 /HPF 05/21/20 06:49 Urine RBC (Auto) 0 /HPF 05/21/20 06:49 Urine Mucus (Auto) OCC /LPF 05/21/20 06:49 Urine Ascorbic Acid NEGATIVE (NEGATIVE) 05/21/20 06:49 Time Trough Drawn 0948 05/22/20 09:48 Vancomycin Trough 12.5 ug/mL (5.0-20.0) 05/22/20 09:48 COVID-19 Source NASOPHARYNGEAL 05/21/20 07:25 COVID-19 (LISA) NOT DETECTED 05/21/20 07:25 05/21/20 04:45 Troponin I < 0.012 NT-Pro-B Natriuret Pep 91 Impressions: Chest X-Ray 05/21/20 04:36 IMPRESSION: Right upper lobe/right perihilar pneumonia copyright 2011 [employer]- All Rights Reserved Chest/Abdomen CTA 05/21/20 08:08 IMPRESSION: 1. No PE. 2. Right upper lung consolidation associated with right hilar and mediastinal mass suspicious for malignancy. Follow-up bronchoscopy recommended for tissue sampling. Plan Time Spent: Less than 30 Minutes Stroke Is this a Stroke Patient?: No Acute Heart Failure - Is this a Heart Failure Patient?: No
== END 2020-05-23 13:48 | disposition home or self-care (01) | DRG 194 ==
LOC: ER 04:24 → EH 11:35 → 3W 16:21
PROVIDERS: ADMIT Internal Medicine; ATTEND Internal Medicine
DX: J18.9 Pneumonia, unspecified organism (principal); J44.1 Chronic obstructive pulmonary disease with (acute) exacerbation; J44.0 Chronic obstructive pulmonary disease with (acute) lower respiratory infection; R91.8 Other nonspecific abnormal finding of lung field; I25.10 Atherosclerotic heart disease of native coronary artery without angina pectoris; I10 Essential (primary) hypertension; E66.9 Obesity, unspecified; I25.2 Old myocardial infarction; Z95.5 Presence of coronary angioplasty implant and graft; Z87.891 Personal history of nicotine dependence; Z88.0 Allergy status to penicillin; Z20.828 Contact with and (suspected) exposure to other viral communicable diseases
CPT/HCPCS: 36415; 71045; 71275; 80048; 80053; 80202; 81001; 83735; 83880; 84100; 84484; 85025; 87040; 87635; 93005; 93010; 94640; 96365; 96366; 96367; 96375; 99285; C9803; J0692; J1650; J2930; J3370; J3490; J7060; J7512

== ENCOUNTER 2020-08-01 07:49 | Outpatient (CLI) | payer MEDICARE ==
[~2020-08-01 07:49] MED LIST: NORMAL SALINE 250 ML @ KVO IV PRN
[2020-08-01] MEDS ORDERED: DEXAMETHASONE 10 MG in NS 50 ML IV PRN (08:25)
[2020-08-01] MEDS ORDERED: PALONOSETRON 0.25 MG/5 ML VIAL IV PRN (08:26)
[2020-08-01] MEDS ORDERED: FOSAPREPITANT 150 MG in NS 150 ML IV PRN (08:26)
[2020-08-01] MEDS ORDERED: ETOPOSIDE 175 MG in NORMAL SALINE 500 ML IV PRN (08:27)
[2020-08-01] MEDS ORDERED: ATEZOLIZUMAB 1,200 MG in NORMAL SALINE 250 ML IV PRN (08:28)
[2020-08-01] MEDS ORDERED: CARBOPLATIN 625 MG in NORMAL SALINE 250 ML IV PRN (08:29)
[2020-08-01] MEDS ORDERED: DEXAMETHASONE SOD PHOSPHATE 10 MG in NORMAL SALINE 100 ML IV PRN (08:37)
[2020-08-01 08:57] VITALS: BP 120/52
== END 2020-08-01 12:15 | disposition home or self-care (01) ==
LOC: II 07:49 → 5TH 07:56 → II 12:15
PROVIDERS: ATTEND Internal Medicine
DX: Z51.11 Encounter for antineoplastic chemotherapy (principal); C34.2 Malignant neoplasm of middle lobe, bronchus or lung
CPT/HCPCS: 96413; 96367; 96375; 96417; J9045; J9181; J7050 ×2; J7040; J1100; J1453; J2469; J9022

== ENCOUNTER 2020-08-02 08:52 | Outpatient (CLI) | payer MEDICARE, OTHER ==
[~2020-08-02 08:52] MED LIST changes: +DEXAMETHASONE SOD PHOSPHATE 10 MG in NORMAL SALINE 100 ML IV PRN; +ETOPOSIDE 175 MG in NORMAL SALINE 500 ML IV PRN
[2020-08-02 09:11] VITALS: BP 118/55
== END 2020-08-02 12:30 | disposition home or self-care (01) ==
LOC: II 08:52 → 5TH 08:55 → II 12:30
PROVIDERS: ATTEND Internal Medicine
DX: Z51.11 Encounter for antineoplastic chemotherapy (principal); C34.2 Malignant neoplasm of middle lobe, bronchus or lung
CPT/HCPCS: 96413; 96367; J9181; J7050; J7040; J1100

== ENCOUNTER 2020-08-03 08:50 | Outpatient (CLI) | payer MEDICARE, OTHER ==
[2020-08-03 10:14] VITALS: BP 120/50
== END 2020-08-03 11:30 | disposition home or self-care (01) ==
LOC: II 08:50 → 5TH 08:54 → II 11:30
PROVIDERS: ATTEND Internal Medicine
DX: Z51.11 Encounter for antineoplastic chemotherapy (principal); C34.2 Malignant neoplasm of middle lobe, bronchus or lung
CPT/HCPCS: 96413; 96367; J9181; J7050; J7040; J1100

== ENCOUNTER 2020-08-22 08:05 | Outpatient (CLI) | payer MEDICARE, OTHER ==
[~2020-08-22 08:05] MED LIST changes: +ATEZOLIZUMAB 1,200 MG in NORMAL SALINE 250 ML IV PRN; +CARBOPLATIN 625 MG in NORMAL SALINE 250 ML IV PRN; +DEXAMETHASONE 10 MG in NS 50 ML IV PRN; -ETOPOSIDE 175 MG in NORMAL SALINE 500 ML IV PRN; +ETOPOSIDE IV PRN; +FOSAPREPITANT 150 MG in NS 150 ML IV PRN; -NORMAL SALINE 250 ML @ KVO IV PRN; +NORMAL SALINE 250 ML IV PRN; +NORMAL SALINE IV PRN; +PALONOSETRON 0.25 MG/5 ML VIAL IV PRN
[2020-08-22 09:00] VITALS: BP 114/55
== END 2020-08-22 13:30 | disposition home or self-care (01) ==
LOC: II 08:05 → 5TH 08:09 → II 13:30
PROVIDERS: ATTEND Internal Medicine
DX: Z51.11 Encounter for antineoplastic chemotherapy (principal); C34.2 Malignant neoplasm of middle lobe, bronchus or lung
CPT/HCPCS: 96413; 96367; 96375; 96417; J9045; J9181; J7050 ×2; J7040; J1100; J1453; J2469; J9022

== ENCOUNTER 2020-08-23 08:05 | Outpatient (CLI) | payer MEDICARE, OTHER ==
[~2020-08-23 08:05] MED LIST changes: -ATEZOLIZUMAB 1,200 MG in NORMAL SALINE 250 ML IV PRN; -CARBOPLATIN 625 MG in NORMAL SALINE 250 ML IV PRN; -DEXAMETHASONE 10 MG in NS 50 ML IV PRN; -FOSAPREPITANT 150 MG in NS 150 ML IV PRN; -PALONOSETRON 0.25 MG/5 ML VIAL IV PRN
[2020-08-23 08:19] VITALS: BP 139/77
--- OUTSIDE RECORDS SUMMARY | 2020-08-24 18:01 | XMS REPORT ---
:1950 [facility] [place] [address] [place] [address] Care Team Providers Name Role Phone Rosalino Pichardo Attending Clinician Unavailable Kathy FROST Attending Clinician Unavailable Brielle FROST Attending Clinician Unavailable Maninder DELGADO Attending Clinician Unavailable Allergies, Adverse Reactions, Alerts Allergy Name Allergy Status Severity Reaction(s) Onset Inactive Treat ing Comments Type Date Date Clinician PENICILLINS Miscellaneo Active U Unknown us allergy 03-07 00:00: 00 PCN Allergy to Active Drug (Finding) levofloxacin Allergy to Active Drug (Finding) Medications Ordered Filled Start Stop Current Ordering Indication Dosage Frequency Signature Comments Components Medication Medication Date Date Medication? Clinician (SIG) Name Name Albuterol 2019-10 Yes 2.5mg Sulfate 0-30 00:00: 00 Albuterol 2019-10 No 2 Sulfate 0-29 00:00: 00 Xanax 2019-10 Yes 1 0-26 00:00: 00 Sodium 2019- Yes 250mL Chloride 0-20 00:00: 00 Carboplatin 2019- Yes 625mg 0-20 00:00: 00 Dexamethaso 2019-10 Yes 10mg ne Sodium 0-20 Phosphate 00:00: 00 Etoposide 2019-10 Yes 177mg 0-20 00:00: 00 Medrol 2019- Yes 0-20 00:00: 00 Fosaprepita 2019-10 2020- Yes 150mg nt 0-20 08-02 Dimeglumine 00:00: 00:00 00 :00 Palonosetro 2019-10 2020- Yes .25mg n HCl 0-20 10-21 00:00: 00:00 00 :00 Tecentriq 2019-10 2020- Yes 1200mg 0-20 10-21 00:00: 00:00 00 :00 Omeprazole 2019- Yes 1 0-19 00:00: 00 Ondansetron 2020-1 Yes 1 HCl 0-19 00:00: 00 Promethazin 2020-1 Yes 1 e HCl 0-19 00:00: 00 Megestrol 2020-1 Yes 10mL Acetate 0-19 00:00: 00 Clindamycin 2019-0 Yes 1 HCl 9-16 00:00: 00 Zithromax 2020-0 2020- No Z-Zack 9- 10-20 00:00: 16:01 00 :02 Aspirin 81 Yes 1 Isosorbide Yes 1 Mononitrate Metoprolol Yes 1 Succinate Problems Condition Condition Condition Status Onset Resolution Last Treatin g Comments Name Details Category Date Date Treatment Clinician Date Patient Patient Diagnosis active encounter encounter status status Lung mass Lung mass Diagnosis active Primary Primary Diagnosis 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 Procedures Procedure Date / Time Performed Performing Clinician Devic e OFFICE/OUTPATIENT VISIT, EST 2016-04-17 10:30:00 OFFICE/OUTPATIENT VISIT, EST 2016-02-21 09:45:00 BASIC METABOLIC PANEL 2016-01-09 08:45:00 ROUTINE VENIPUNCTURE 2016-01-09 08:45:00 OFFICE/OUTPATIENT VISIT, EST 2015-10-18 10:15:00 ROUTINE VENIPUNCTURE 2015-09-27 08:45:00 ASSAY OF CK (CPK) 2015-09-19 08:45:00 LIPID PANEL 2015-09-19 08:45:00 ROUTINE VENIPUNCTURE 2015-09-19 08:45:00 COMPREHEN METABOLIC PANEL 2015-09-19 08:45:00 OFFICE/OUTPATIENT VISIT, EST 2015-09-18 10:15:00 OFFICE/OUTPATIENT VISIT, EST 2015-07-26 11:00:00 COMPLETE CBC, AUTOMATED 2015-06-28 11:30:00 PROTHROMBIN TIME 2015-06-28 11:30:00 COMPREHEN METABOLIC PANEL 2015-06-28 11:30:00 OFFICE/OUTPATIENT VISIT, EST 2015-06-28 11:30:00 THROMBOPLASTIN TIME, PARTIAL 2015-06-28 11:30:00 ROUTINE VENIPUNCTURE 2015-06-28 11:30:00 Cath Placement For Cor Angio W/ L 2015-06-27 00:00:00 Heart Cath OFFICE/OUTPATIENT VISIT, EST 2015-06-15 10:15:00 OFFICE/OUTPATIENT VISIT, EST 2015-06-14 10:00:00 OFFICE/OUTPATIENT VISIT, EST 2015-05-03 09:45:00 PROTHROMBIN TIME 2015-03-30 15:15:00 THROMBOPLASTIN TIME, PARTIAL 2015-03-30 15:15:00 COMPLETE CBC, AUTOMATED 2015-03-30 15:15:00 OFFICE/OUTPATIENT VISIT, EST 2015-03-30 15:15:00 ROUTINE VENIPUNCTURE 2015-03-30 15:15:00 COMPREHEN METABOLIC PANEL 2015-03-30 15:15:00 Myocardial Perfusion-Multi W/wall 2015-03-30 11:00:00 Motion \T\ Ejectio CARDIOVASCULAR STRESS TEST 2015-03-30 11:00:00 Tc99m sestamibi 2015-03-30 11:00:00 CARDIOVASCULAR STRESS TEST 2015-03-30 11:00:00 CARDIOVASCULAR STRESS TEST 2015-03-30 11:00:00 IV PUSH, SINGLE OR INITIAL DRUG 2015-03-30 11:00:00 Echo-transthoracic W/Color Flow 2015-03-30 10:30:00 OFFICE/OUTPATIENT VISIT, NEW 2015-03-22 11:30:00 OFFICE/OUTPATIENT VISIT, EST 2015-03-16 09:30:00 ASSAY THYROID STIM HORMONE 2015-03-09 09:00:00 LIPID PANEL 2015-03-09 09:00:00 COMPLETE CBC, AUTOMATED 2015-03-09 09:00:00 COMPREHEN METABOLIC PANEL 2015-03-09 09:00:00 ROUTINE VENIPUNCTURE 2015-03-09 09:00:00 ELECTROCARDIOGRAM, COMPLETE 2015-03-07 15:00:00 CHEST X-RAY 2015-03-07 15:00:00 OFFICE/OUTPATIENT VISIT, NEW 2015-03-07 15:00:00 cardiac catherization coronary stent Results Test Description Test Time Test Comments Text Results Atomic Results Result Comments WBC 2020-08-21 13:31:00 Test Item Value Reference Range Comments WBC (test code = WBC) 3.2000 4.0000-10.0000 Lymphocytes % (test code = Lymphocytes %) 22.4000 % 22.400 0-43.6000 MID% (test code = MID%) 7.4000 % 1.2000-11.2000 Neutrophils % (test code = Neutrophils %) 70.2000 % 48.900 0-69.9000 Lymphocytes (test code = Lymphocytes) 0.7000 1.2000-3.2 000 MID (test code = MID) 0.3000 0.1000-1.1000 Neutrophils (test code = Neutrophils) 2.2000 1.5000-6.7 000 RBC (test code = RBC) 3.6100 3.7000-4.9000 HGB (test code = HGB) 10.0000 g/dL 11.2000-18.0000 HCT (test code = HCT) 30.6000 % 34.0000-44.0000 MCV (test code = MCV) 84.6000 fL 80.0000-94.0000 MCH (test code = MCH) 27.8000 pg 27.0000-34.0000 MCHC (test code = MCHC) 32.9000 g/dL 31.5000-36.0000 RDW (test code = RDW) 16.7000 11.0000-18.0000 PLT (test code = PLT) 409.0000 140.0000-440.0000 MPV (test code = MPV) 7.9000 fL 6.8000-10.6000 [id number] 13:31:00 Test Item Value Reference Range Comments Creatinine (test code = Creatinine) 0.7000 mg/dL 0.5000-1.200 0 Cr Clearance (Est) (test code = Cr 133.3100 85.0000-125.0 000 Clearance (Est)) Glucose (test code = Glucose) 150.0000 mg/dL 70.0000-118.0000 BUN (test code = BUN) 13.0000 mg/dL 7.0000-22.0000 Sodium (test code = Sodium) 141.0000 mmol/L 128.0000-145.0000 Potassium (test code = Potassium) 3.5000 mmol/L 3.6000-5.1000 Chloride (test code = Chloride) 106.0000 mmol/L 96.0000-108.0000 CO2 (test code = CO2) 25.0000 mmol/L 18.0000-33.0000 Calcium (test code = Calcium) 9.0000 mg/dL 8.0000-10.3000 Alkaline Phosphatase (test code = Alkaline 97.0000 42.00 00-141.0000 Phosphatase) ALT (SGPT) (test code = ALT (SGPT)) 27.0000 10.0000-47.0 000 AST (SGOT) (test code = AST (SGOT)) 28.0000 11.0000-37.0 000 Bilirubin, Total (test code = Bilirubin, 0.4000 mg/dL 0.0000- 1.6000 Total) Albumin (test code = Albumin) 3.0000 g/dL 3.5000-5.5000 Protein, Total (test code = Protein, 6.9000 g/dL 6.4000-8.10 00 Total) eGFR -Guamanian (test code = eGFR 135.0000 60.0000- 200.0000 -Guamanian) eGFR All-Uhzsgbo-Lqpukvpq (test code = 111.0000 60.0000-2 00.0000 eGFR Dmf-Wzbbzhx-Ixheqbva) Magnesium (test code = Magnesium) 1.6000 mg/dL 1.6000-2.3000 [id number] 14:28:00 Test Item Value Reference Range Comments WBC (test code = WBC) 2.3000 4.0000-10.0000 Lymphocytes % (test code = Lymphocytes %) 39.1000 % 22.400 0-43.6000 MID% (test code = MID%) 10.4000 % 1.2000-11.2000 Neutrophils % (test code = Neutrophils %) 50.5000 % 48.900 0-69.9000 Lymphocytes (test code = Lymphocytes) 0.9000 1.2000-3.2 000 MID (test code = MID) 0.3000 0.1000-1.1000 Neutrophils (test code = Neutrophils) 1.1000 1.5000-6.7 000 RBC (test code = RBC) 3.2100 3.7000-4.9000 HGB (test code = HGB) 8.9000 g/dL 11.2000-18.0000 HCT (test code = HCT) 27.2000 % 34.0000-44.0000 MCV (test code = MCV) 84.8000 fL 80.0000-94.0000 MCH (test code = MCH) 27.8000 pg 27.0000-34.0000 MCHC (test code = MCHC) 32.8000 g/dL 31.5000-36.0000 RDW (test code = RDW) 15.9000 11.0000-18.0000 PLT (test code = PLT) 173.0000 140.0000-440.0000 MPV (test code = MPV) 8.1000 fL 6.8000-10.6000 Cr Clearance (Est)2020-07-31 14:59:51 Test Item Value Reference Range Comments Cr Clearance (Est) (test code = Cr Clearance 114.3300 85. 0000-125.0000 (Est)) Creatinine (test code = Creatinine) 0.8000 mg/dL 0.5000-1.500 0 [id number] 14:59:51 Test Item Value Reference Range Comments Creatinine (test code = Creatinine) 0.8000 mg/dL 0.5000-1.500 0 Cr Clearance (Est) (test code = Cr Clearance 114.3300 85. 0000-125.0000 (Est)) [id number] 14:52:00 Test Item Value Reference Range Comments TIBC (test code = TIBC) 206.0000 250.0000-450.0000 UIBC (test code = UIBC) 182.0000 111.0000-343.0000 Iron, Total (test code = Iron, Total) 24.0000 38.0000-16 9.0000 Vitamin B12 (test code = Vitamin B12) 837.0000 pg/mL 232.0000-1 245.0000 Ferritin (test code = Ferritin) 1128.0000 ng/mL 30.0000-400.0000 Folate (test code = Folate) 5.1000 ng/mL % Iron Saturation (test code = % Iron 12.0000 % 15.0000-55 .0000 Saturation) Iron, [id number] 14:52:00 Test Item Value Reference Range Comments Iron, Total (test code = Iron, Total) 24.0000 38.0000-16 9.0000 TIBC (test code = TIBC) 206.0000 250.0000-450.0000 UIBC (test code = UIBC) 182.0000 111.0000-343.0000 % Iron Saturation (test code = % Iron 12.0000 % 15.0000-55 .0000 Saturation) Vitamin B12 (test code = Vitamin B12) 837.0000 pg/mL 232.0000-1 245.0000 Folate (test code = Folate) 5.1000 ng/mL Ferritin (test code = Ferritin) 1128.0000 ng/mL 30.0000-400.0000 Alkaline [id number] 13:45:00 Test Item Value Reference Range Comments Alkaline Phosphatase (test code = Alkaline 74.0000 42.00 00-141.0000 Phosphatase) ALT (SGPT) (test code = ALT (SGPT)) 42.0000 10.0000-47.0 000 AST (SGOT) (test code = AST (SGOT)) 76.0000 11.0000-37.0 000 Chloride (test code = Chloride) 99.0000 mmol/L 96.0000-108.0000 CO2 (test code = CO2) 26.0000 mmol/L 18.0000-33.0000 Potassium (test code = Potassium) 4.1000 mmol/L 3.6000-5.1000 Sodium (test code = Sodium) 134.0000 mmol/L 128.0000-145.0000 eGFR -Guamanian (test code = eGFR 116.0000 60.0000- 200.0000 -Guamanian) eGFR Htb-Thelzrj-Iqpgwcji (test code = 96.0000 60.0000-2 00.0000 eGFR Hzn-Epudmrg-Zwyxwcla) Cr Clearance (Est) (test code = Cr 114.3300 85.0000-125.0 000 Clearance (Est)) Protein, Total (test code = Protein, 6.4000 g/dL 6.4000-8.10 00 Total) Albumin (test code = Albumin) 3.9000 g/dL 3.5000-5.5000 Glucose (test code = Glucose) 111.0000 mg/dL 70.0000-118.0000 Creatinine (test code = Creatinine) 0.8000 mg/dL 0.5000-1.200 0 Bilirubin, Total (test code = Bilirubin, 0.5000 mg/dL 0.0000- 1.6000 Total) BUN (test code = BUN) 12.0000 mg/dL 7.0000-22.0000 Calcium (test code = Calcium) 8.8900 mg/dL 8.0000-10.3000 [id number] 13:45:00 Test Item Value Reference Range Comments RDW (test code = RDW) 15.2000 11.0000-18.0000 MID% (test code = MID%) 2.3000 % 1.2000-11.2000 Neutrophils % (test code = Neutrophils %) 90.2000 % 48.900 0-69.9000 HCT (test code = HCT) 32.5000 % 34.0000-44.0000 Lymphocytes % (test code = Lymphocytes %) 7.5000 % 22.400 0-43.6000 MCH (test code = MCH) 28.4000 pg 27.0000-34.0000 MPV (test code = MPV) 8.6000 fL 6.8000-10.6000 MCV (test code = MCV) 84.0000 fL 80.0000-94.0000 MCHC (test code = MCHC) 33.9000 g/dL 31.5000-36.0000 HGB (test code = HGB) 11.0000 g/dL 11.1999-18.0000 Lymphocytes (test code = Lymphocytes) 0.6000 1.2000-3.2 000 MID (test code = MID) 0.2000 0.1000-1.1000 Neutrophils (test code = Neutrophils) 7.1999 1.5000-6.7 000 PLT (test code = PLT) 431.0000 140.0000-440.0000 WBC (test code = WBC) 8.0000 4.0000-10.0000 RBC (test code = RBC) 3.8600 3.7000-4.9000 [id number] 13:45:00 Test Item Value Reference Range Comments WBC (test code = WBC) 8.0000 4.0000-10.0000 Lymphocytes % (test code = Lymphocytes %) 7.5000 % 22.400 0-43.6000 MID% (test code = MID%) 2.3000 % 1.2000-11.2000 Neutrophils % (test code = Neutrophils %) 90.2000 % 48.900 0-69.9000 Lymphocytes (test code = Lymphocytes) 0.6000 1.2000-3.2 000 MID (test code = MID) 0.2000 0.1000-1.1000 Neutrophils (test code = Neutrophils) 7.1999 1.5000-6.7 000 RBC (test code = RBC) 3.8600 3.7000-4.9000 HGB (test code = HGB) 11.0000 g/dL 11.1999-18.0000 HCT (test code = HCT) 32.5000 % 34.0000-44.0000 MCV (test code = MCV) 84.0000 fL 80.0000-94.0000 MCH (test code = MCH) 28.4000 pg 27.0000-34.0000 MCHC (test code = MCHC) 33.9000 g/dL 31.5000-36.0000 RDW (test code = RDW) 15.1999 11.0000-18.0000 PLT (test code = PLT) 431.0000 140.0000-440.0000 MPV (test code = MPV) 8.6000 fL 6.8000-10.6000 [id number] 13:45:00 Test Item Value Reference Range Comments Creatinine (test code = Creatinine) 0.8000 mg/dL 0.5000-1.200 0 Cr Clearance (Est) (test code = Cr 114.3300 85.0000-125.0 000 Clearance (Est)) Glucose (test code = Glucose) 111.0000 mg/dL 70.0000-118.0000 BUN (test code = BUN) 12.0000 mg/dL 7.0000-22.0000 Sodium (test code = Sodium) 134.0000 mmol/L 128.0000-145.0000 Potassium (test code = Potassium) 4.1000 mmol/L 3.6000-5.1000 Chloride (test code = Chloride) 99.0000 mmol/L 96.0000-108.0000 CO2 (test code = CO2) 26.0000 mmol/L 18.0000-33.0000 Calcium (test code = Calcium) 8.8900 mg/dL 8.0000-10.3000 Alkaline Phosphatase (test code = Alkaline 74.0000 42.00 00-141.0000 Phosphatase) ALT (SGPT) (test code = ALT (SGPT)) 42.0000 10.0000-47.0 000 AST (SGOT) (test code = AST (SGOT)) 76.0000 11.0000-37.0 000 Bilirubin, Total (test code = Bilirubin, 0.5000 mg/dL 0.0000- 1.6000 Total) Albumin (test code = Albumin) 3.9000 g/dL 3.5000-5.5000 Protein, Total (test code = Protein, 6.4000 g/dL 6.4000-8.10 00 Total) eGFR -Guamanian (test code = eGFR 116.0000 60.0000- 200.0000 -Guamanian) eGFR Uag-Vgysehp-Dkopoflg (test code = 96.0000 60.0000-2 00.0000 eGFR Lry-Hncribx-Ekazndnk) [id number] 09:44:00 Test Item Value Reference Range Comments BUN/CREAT RATIO (test code = BUN/CREAT RATIO) 13 10 -14 CR (test code = CR) 1.2 MG/DL 0.4-1.3 EGFR (test code = EGFR) 64.11 >60.00 CA (test code = CA) 8.8 MG/DL 8.5-10.1 K (test code = K) 4.2 MMOL/L 3.5-5.1 CL (test code = CL) 107 MMOL/L 98-110 CO2 (test code = CO2) 27.5 MMOL/L 21.0-32.0 GLU (test code = GLU) 120 MG/DL 70-110 EGFRAA (test code = EGFRAA) 77.70 >60.00 ION GAP (test code = ION GAP) 12 4-16 NA (test code = NA) 142 MMOL/L 135-145 BUN (test code = BUN) 15 MG/DL 7-18 LIPID [id number] 09:44:00 Test Item Value Reference Range Comments TGL (test code = TGL) 193 MG/DL 30-200 CHOL (test code = CHOL) 214 MG/DL 140-200 DLDL (test code = DLDL) 144 MG/DL 100-130 CHD (test code = CHD) 14.95 HDL (test code = HDL) 32 MG/DL 32-96 CBC WITH [id number] 09:44:00 Test Item Value Reference Range Comments BA# (test code = BA#) 0.0 K/uL 0.0-0.1 HGB (test code = HGB) 14.1 G/DL 12.9-16.1 RBC (test code = RBC) 4.51 M/uL 4.27-5.49 PLT (test code = PLT) 198 K/UL 165-353 MCHC (test code = MCHC) 32.8 G/DL 32.0-35.5 EO% (test code = EO%) 5.5 % 0.0-7.8 LY% (test code = LY%) 24.5 % 16.8-43.5 GR% (test code = GR%) 62.0 % 43.3-71.9 RDW (test code = RDW) 14.9 % 12.0-15.1 MCV (test code = MCV) 95 H FL 79-95 MO% (test code = MO%) 7.3 % 4.6-12.3 BA% (test code = BA%) 0.7 % 0.0-1.1 WBC (test code = WBC) 6.6 K/UL 3.6-11.1 GR# (test code = GR#) 4.1 K/uL 1.9-7.2 MO# (test code = MO#) 0.5 # 0.3-0.8 EO# (test code = EO#) 0.4 # 0.0-0.5 MCH (test code = MCH) 31.2 PQ 26.8-33.2 LY# (test code = LY#) 1.6 K/uL 1.1-2.7 HCT (test code = HCT) 42.9 % 37.7-46.5 MPV (test code = MPV) 11.0 H FL 7.5-10.7 LYTES [id number] 08:38:00 Test Item Value Reference Range Comments GLU (test code = GLU) 110 MG/DL 70-110 EGFRAA (test code = EGFRAA) 86.24 >60.00 EGFR (test code = EGFR) 71.15 >60.00 K (test code = K) 4.5 MMOL/L 3.5-5.1 BUN (test code = BUN) 14 MG/DL 7-18 BUN/CREAT RATIO (test code = BUN/CREAT RATIO) 13 10 -14 NA (test code = NA) 143 MMOL/L 135-145 CL (test code = CL) 109 MMOL/L 98-110 CA (test code = CA) 8.8 MG/DL 8.5-10.1 ION GAP (test code = ION GAP) 16 4-16 CO2 (test code = CO2) 22.1 MMOL/L 21.0-32.0 CR (test code = CR) 1.1 MG/DL 0.4-1.3 Creatinine [id number] 09:50:00 Test Item Value Reference Range Comments Creatinine Clearance (test code = 129135) 127 mL/min 97-137 Creatinine, Urine (test code = 688305) 84.2 mg/dL 22.0-328. 0 Creatinine, Serum (test code = 554786) 1.24 mg/dL 0.76-1.27 eGFR If NonAfricn Am (test code = 516003) 61 mL/min/1.73 >59 eGFR If Africn Am (test code = 619986) 70 mL/min/1.73 >59 Creatinine, Ur 24hr (test code = 005634) 2273.4 mg/24 hr 1000.0- 2000.0 Protein Total, Qn, 24-Hr [id number] 09:50:00 Test Item Value Reference Range Comments Prot,24hr calculated (test code = 028328) <108.0 mg/24 hr 30.0-1 50.0 Protein,Total,Urine (test code = 772251) <4.0 mg/dL 0.0-15. 0 Prot,24hr calculated (test code = 2133215) <108.0 mg/24 hr 30.0- 150.0 Protein,Total,Urine (test code = 1253455) <4.0 mg/dL 0.0-15 .0 Protein,Total,Urine (test code = 2885202) <4.0 mg/dL 0.0-15 .0 Prot,24hr calculated (test code = 4607864) <108.0 mg/24 hr 30.0- 150.0 [id number] [id number] 09:01:00 Test Item Value Reference Range Comments ALT (test code = ALT) 31 U/L 9-61 TP (test code = TP) 7.2 G/DL 6.9-8.5 K (test code = K) 4.5 MMOL/L 3.5-5.1 NA (test code = NA) 140 MMOL/L 135-145 CA (test code = CA) 8.6 MG/DL 8.5-10.1 BUN/CREAT RATIO (test code = BUN/CREAT RATIO) 12 10 -14 ALB (test code = ALB) 3.3 G/DL 3.2-4.7 ION GAP (test code = ION GAP) 14 4-16 EGFR (test code = EGFR) 58.73 >60.00 CO2 (test code = CO2) 25.3 MMOL/L 21.0-32.0 AST (test code = AST) 19 U/L 9-37 BILT (test code = BILT) 0.6 MG/DL 0.1-1.0 ALK PHOS (test code = ALK PHOS) 83 U/L 50-136 CL (test code = CL) 105 MMOL/L 98-110 EGFRAA (test code = EGFRAA) 71.18 >60.00 GLOB (test code = GLOB) 3.9 1.9-4.5 BUN (test code = BUN) 16 MG/DL 7-18 GLU (test code = GLU) 106 MG/DL 70-110 CR (test code = CR) 1.3 MG/DL 0.4-1.3 LIPID [id number] 09:01:00 Test Item Value Reference Range Comments HDL (test code = HDL) 32 MG/DL 32-96 CHD (test code = CHD) 20.51 DLDL (test code = DLDL) 108 MG/DL 100-130 TGL (test code = TGL) 88 MG/DL 30-200 CHOL (test code = CHOL) 156 MG/DL 140-200 CK [id number] 09:01:00 Test Item Value Reference Range Comments CKT (test code = CKT) 158 U/L 39-308 [id number] 11:55:00 Test Item Value Reference Range Comments PTT (test code = PTT) 25.7 SEC 21.7-30.5 [id number] 11:55:00 Test Item Value Reference Range Comments PT (test code = PT) 9.9 SEC 9.6-12.2 INR (test code = INR) 1.0 0.9-1.1 [id number] 11:55:00 Test Item Value Reference Range Comments MCV (test code = MCV) 95 FL 79-95 PLT (test code = PLT) 200 K/UL 165-353 WBC (test code = WBC) 5.4 K/UL 3.6-11.1 RBC (test code = RBC) 4.19 L CU/MM 4.27-5.49 HGB (test code = HGB) 13.4 G/DL 12.9-16.1 MCHC (test code = MCHC) 33.7 G/DL 33.5-35.5 MCH (test code = MCH) 32.0 PQ 26.8-33.2 RDW (test code = RDW) 13.1 % 12.0-15.1 HCT (test code = HCT) 39.7 % 37.7-46.5 [id number] [id number] 11:55:00 Test Item Value Reference Range Comments GLU (test code = GLU) 99 MG/DL 70-110 ION GAP (test code = ION GAP) 13 4-16 CA (test code = CA) 8.7 MG/DL 8.5-10.1 ALT (test code = ALT) 46 U/L 9-61 EGFR (test code = EGFR) 71.27 >60.00 EGFRAA (test code = EGFRAA) 86.38 >60.00 NA (test code = NA) 142 MMOL/L 135-145 ALK PHOS (test code = ALK PHOS) 91 U/L 50-136 BUN/CREAT RATIO (test code = BUN/CREAT RATIO) 13 10 -14 K (test code = K) 4.1 MMOL/L 3.5-5.1 BILT (test code = BILT) 0.4 MG/DL 0.1-1.0 TP (test code = TP) 7.2 G/DL 6.9-8.5 CL (test code = CL) 106 MMOL/L 98-110 BUN (test code = BUN) 14 MG/DL 7-18 GLOB (test code = GLOB) 3.4 1.9-4.5 CR (test code = CR) 1.1 MG/DL 0.4-1.3 ALB (test code = ALB) 3.8 G/DL 3.2-4.7 CO2 (test code = CO2) 27.4 MMOL/L 21.0-32.0 AST (test code = AST) 27 U/L 9-37 [id number] 15:39:00 Test Item Value Reference Range Comments PTT (test code = PTT) 26.5 SEC 21.7-30.5 [id number] 15:39:00 Test Item Value Reference Range Comments MCV (test code = MCV) 95 H FL 79-95 MCHC (test code = MCHC) 33.0 G/DL 33.5-35.5 HCT (test code = HCT) 42.0 % 37.7-46.5 WBC (test code = WBC) 6.4 K/UL 3.6-11.1 RBC (test code = RBC) 4.40 CU/MM 4.27-5.49 RDW (test code = RDW) 13.7 % 12.0-15.1 HGB (test code = HGB) 13.8 G/DL 12.9-16.1 PLT (test code = PLT) 203 K/UL 165-353 MCH (test code = MCH) 31.5 PQ 26.8-33.2 [id number] [id number] 15:39:00 Test Item Value Reference Range Comments GLOB (test code = GLOB) 3.6 1.9-4.5 ALK PHOS (test code = ALK PHOS) 85 U/L 50-136 CL (test code = CL) 105 MMOL/L 98-110 EGFRAA (test code = EGFRAA) 86.45 >60.00 K (test code = K) 4.0 MMOL/L 3.5-5.1 AST (test code = AST) 21 U/L 9-37 EGFR (test code = EGFR) 71.32 >60.00 ALB (test code = ALB) 3.8 G/DL 3.2-4.7 BILT (test code = BILT) 0.5 MG/DL 0.1-1.0 CO2 (test code = CO2) 25.9 MMOL/L 21.0-32.0 NA (test code = NA) 138 MMOL/L 135-145 TP (test code = TP) 7.4 G/DL 6.9-8.5 CA (test code = CA) 8.7 MG/DL 8.5-10.1 BUN/CREAT RATIO (test code = BUN/CREAT RATIO) 14 10 -14 ION GAP (test code = ION GAP) 11 4-16 CR (test code = CR) 1.1 MG/DL 0.4-1.3 BUN (test code = BUN) 15 MG/DL 7-18 ALT (test code = ALT) 41 U/L 9-61 GLU (test code = GLU) 115 MG/DL 70-110 [id number] 15:39:00 Test Item Value Reference Range Comments INR (test code = INR) 1.0 0.9-1.1 PT (test code = PT) 9.9 SEC 9.6-12.2 CK [id number] 09:10:00 Test Item Value Reference Range Comments CKT (test code = CKT) 286 U/L 39-308 [id number] 09:10:00 Test Item Value Reference Range Comments RBC (test code = RBC) 4.44 CU/MM 4.27-5.49 MCV (test code = MCV) 97 H FL 79-95 MCH (test code = MCH) 31.9 PQ 26.8-33.2 RDW (test code = RDW) 14.8 % 12.0-15.1 MCHC (test code = MCHC) 33.0 G/DL 33.5-35.5 WBC (test code = WBC) 5.2 K/UL 3.6-11.1 HGB (test code = HGB) 14.1 G/DL 12.9-16.1 PLT (test code = PLT) 193 K/UL 165-353 HCT (test code = HCT) 42.9 % 37.7-46.5 CHEM [id number] 09:10:00 Test Item Value Reference Range Comments BILT (test code = BILT) 0.8 MG/DL 0.1-1.0 GLU (test code = GLU) 94 MG/DL 70-110 BUN (test code = BUN) 20 MG/DL 7-18 BUN/CREAT RATIO (test code = BUN/CREAT RATIO) 18 10 -14 ALK PHOS (test code = ALK PHOS) 82 U/L 50-136 GLOB (test code = GLOB) 3.4 1.9-4.5 ALT (test code = ALT) 44 U/L 9-61 CA (test code = CA) 8.5 MG/DL 8.5-10.1 K (test code = K) 4.3 MMOL/L 3.5-5.1 ION GAP (test code = ION GAP) 13 4-16 CL (test code = CL) 105 MMOL/L 98-110 EGFR (test code = EGFR) 71.34 >60.00 CR (test code = CR) 1.1 MG/DL 0.4-1.3 EGFRAA (test code = EGFRAA) 86.46 >60.00 AST (test code = AST) 29 U/L 9-37 NA (test code = NA) 138 MMOL/L 135-145 TP (test code = TP) 7.3 G/DL 6.9-8.5 ALB (test code = ALB) 3.9 G/DL 3.2-4.7 CO2 (test code = CO2) 24.3 MMOL/L 21.0-32.0 [id number] 09:10:00 Test Item Value Reference Range Comments TSH (test code = TSH) 1.58 UIU/ML 0.50-5.80 LIPID [id number] 09:10:00 Test Item Value Reference Range Comments CHOL (test code = CHOL) 207 MG/DL 140-200 HDL (test code = HDL) 32 MG/DL 32-96 CHD (test code = CHD) 15.46 DLDL (test code = DLDL) 151 MG/DL 100-130 TGL (test code = TGL) 124 MG/DL 30-200 Assessments Condition Name Status Diagnosis Date Treating Clinici an 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 Essential (primary) hypertension Active Hyperlipidemia, unspecified Active Myalgia Active 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 Essential (primary) hypertension Active Hyperlipidemia, unspecified Active Myalgia Active Abnormal results of kidney function studies Active 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 Essential (primary) hypertension Active Hyperlipidemia, unspecified Active Abnormal results of kidney function studies Active Hyperlipidemia, unspecified Active Chronic obstructive pulmonary disease, Active unspecified Essential (primary) hypertension Active Hyperlipidemia, unspecified Active 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 Hyperlipidemia, unspecified Active Essential (primary) hypertension Active 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 Hypertension - Benign (Essential) Active Pain - Chest Active Hyperlipidemia (Unspecified) Active Pain - Chest Active 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 Angina Pectoris (Unspecified) Active Hypertension - Benign (Essential) Active Disease - Arteriosclerotic Heart (ASHD) Active Hyperlipidemia (Unspecified) Active Obstruction - Airway (Chronic)(COPD) Active Hypertension - Unspecified (Essential) Active Hyperlipidemia (Unspecified) Active 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 Hyperlipidemia (Unspecified) Active Hypertension - Benign (Essential) Active 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 Pain - Chest Active Hyperlipidemia (Unspecified) Active Pain - Chest Active Pain - Chest Active Pain - Chest Active Hyperlipidemia (Unspecified) Active Pain - Chest Active Hyperlipidemia (Unspecified) Active Pain - Chest Active Exam - General Medical Active Pain - Chest Active Exam - General Medical Active Encounters Start End Encounter Admission Attending Care Care Encounter Date/Time Date/Time Type Type Clinicians Facility Department ID 2020-08-23 2020-08-23 Outpatient Arron Jerry rn [id number] 00:00:00 00:00:00 [facility] Oncology Oncology [facility] 2020-08-22 2020-08-22 Outpatient Arron Jerry rn [id number] 00:00:00 00:00:00 [facility] On[facility] Oncology [facility] 2020-08-21 2020-08-21 Rosalino Tang [facility] [id number] 00:00:00 00:00:00 [facility] [place] 2020-08-15 2020-08-15 Outpatient Arron eJrry rn [id number] 00:00:00 00:00:00 [facility] [place] 2020-08-14 2020-08-14 Outpatient Arron Sammonica n [id number] 00:00:00 00:00:00 [facility] Medical Oncology [facility] [place] 2020-08-11 2020-08-11 Outpatient Arron Sammonica n [id number] 00:00:00 00:00:00 [facility] Medical Oncology [facility] [place] 2020-08-10 2020-08-10 Outpatient Arron Heller n [id number] 00:00:00 00:00:00 [facility] On[facility] [place] 2020-08-08 2020-08-08 Outpatient Arron Jerry rn [id number] 00:00:00 00:00:00 [facility] [place] 2020-08-07 2020-08-07 Outpatient Arron Heller n [id number] 00:00:00 00:00:00 [facility] Oncology [facility] [place] 2020-08-03 2020-08-03 Outpatient Arron Jerry rn [id number] 00:00:00 00:00:00 [facility] [place] 2020-08-02 2020-08-02 Outpatient Arron Jerry rn [id number] 00:00:00 00:00:00 [facility] [place] 2020-08-01 2020-08-01 Outpatient Arron Jerry rn [id number] 00:00:00 00:00:00 [facility] [place] 2020-07-31 2020-07-31 Arron [facility] [id number] 00:00[facility]00 [facility] [place] 2020-07-21 2020-07-21 Outpatient Arron Heller n [id number] 00:00:00 00:00:00 [facility] Oncology [facility] [place] 2020-07-20 2020-07-20 Outpatient Arron Heller n [id number] 00:00:00 00:00:00 [facility] Oncology [facility] [place] 2020-07-12 2020-07-12 Outpatient Arron Jerry rn [id number] 00:00:00 00:00:00 [facility] On[facility] Oncology [facility] 2020-07-07 2020-07-07 Outpatient Sammonica Sammonica n [id number] 00:00:00 00:00:00 [facility] [place] 2020-07-05 2020-07-05 Outpatient Sammonica Samer n [id number] 00:00:00 00:00:00 [facility] Oncology Oncology [facility] 2020-07-04 2020-07-04 Outpatient [facility] Samer n [id number] 00:00:00 00:00:00 [facility] [place] 2020-07-03 2020-07-03 Outpatient Sammonica Sammonica n [id number] 00:00:00 00:00:00 [facility] Oncology Oncology [facility] 2020-06-30 2020-06-30 OttonielRosalino [facility] [id number] 00:00:00 00:00:00 Vivien [facility] On[facility] Oncology [facility] 2020-06-29 2020-06-29 Outpatient Sammonica Sammonica n [id number] 00:00:00 00:00:00 [facility] On[facility] Oncology [facility] 2020-06-28 2020-06-28 Outpatient Arron Jerry rn [id number] 00:00:00 00:00:00 [facility] Oncology [facility] 2020-06-17 2020-06-17 Outpatient Arron Heller n [id number] 00:00:00 00:00:00 [facility] Oncology Oncology [facility] 2020-06-14 2020-06-14 Outpatient Arron Jerry rn [id number] 00:00:00 00:00:00 [facility] On[facility] Oncology [facility] 2020-06-13 2020-06-13 Outpatient Arron Jerry rn [id number] 00:00:00 00:00:00 [facility] On[facility] Oncology [facility] 2020-05-29 2020-05-29 Outpatient Arron Heller n [id number] 00:00:00 00:00:00 [facility] Oncology Oncology [facility] 2020-05-26 2020-05-26 Outpatient Arron Vargaser n [id number] 00:00:00 00:00:00 [facility] Oncology Oncology [facility] 2020-05-25 2020-05-25 [facility] [id number]:00:00 00:00:00 Vivien Ye [facility] Medical Oncology [facility] [place] 2020-05-23 2020-05-23 Outpatient Sam Sam n [id number] 00:00:00 00:00:00 [facility] [place] 2020-05-22 2020-05-22 Outpatient Sam Sam n [id number] 00:00:00 00:00:00 [facility] [place] 2020-05-21 2020-05-21 Outpatient [facility] Sam n [id number] 00:00:00 00:00:00 [facility] [place] 2016-04-17 2016-04-17 Outpatient Kathy Singleton [id number] 10:30:00 10:30:00 MD [facility] [id number] Health [id number] [place], [employer] [id number] 2016-02-21 2016-02-21 Outpatient Kathy Singleton [id number] 09:45:00 09:45:00 MD [facility] [id number] -[id number] Health [id number] [place], [employer] [id number] 2016-01-09 2016-01-09 Outpatient Brielle FROSTRICARDO [id number] 08:45:00 08:45:00 [facility] [id number] Health [id number] [place], [employer] [id number] 2015-10-18 2015-10-18 Outpatient Kathy Singleton [id number] 10:15:00 10:15:00 MD [facility] [id number] Health [id number] [place], [employer] [id number] 2015-09-27 2015-09-27 Outpatient Brielle FROST RICARDO Singleton [id number] 08:45:00 08:45:00 [facility] [id number] Health [id number] [place], [employer] [id number] 2015-09-19 2015-09-19 Outpatient Brielle FROSTRICARDO [id number] 08:45:00 08:45:00 [facility] [id number] Health [id number] [place] [id number] 2015-09-18 2015-09-18 Outpatient Brielle FROSTRICARDO [id number] 10:15:00 10:15:00 [facility] [id number] Health [id number] [place], [employer]. [id number] 2015-07-26 2015-07-26 Outpatient Kathy Singleton [id number] 11:00:00 11:00:00 MD [facility] [id number] Health [id number] [place], [employer] [id number] 2015-06-28 2015-06-28 Outpatient Kathy Singleton [id number] 11:30:00 11:30:00 MD [facility] [id number] Health [id number] [place], [employer]. [id number] 2015-06-27 2015-06-27 Outpatient Kathy Singleton [id number] 00:00:00 00:00:00 MD [facility] [id number] Health [id number] [place], [employer] [id number] 2015-06-15 2015-06-15 Outpatient Brielle FROSTRICARDO [id number] 10:15:00 10:15:00 [facility] [id number] Health [id number] [place], [employer]. [id number] 2015-06-14 2015-06-14 Outpatient Kathy Singleton [id number] 10:00:00 10:00:00 MD [facility] [id number] Health [id number] [place], [employer]. [id number] 2015-05-03 2015-05-03 Outpatient Kathy Singleton [id number] 09:45:00 09:45:00 MD [facility] [id number] Health [id number] [place], [employer]. [id number] 2015-03-30 2015-03-30 Outpatient Kathy Singleton [id number] 15:15:00 15:15:00 MD [facility] [id number] -A Health [id number] [place], [employer]. [id number] 2015-03-30 2015-03-30 Outpatient Kathy Singleton [id number] 11:00:00 11:00:00 MD [facility] [id number] Health [id number] [place] [id number] 2015-03-30 2015-03-30 Outpatient Kathy Singleton [id number] 10:30:00 10:30:00 MD [facility] [id number] Health [id number] [place], [employer]. [id number] 2015-03-22 2015-03-22 Outpatient Kathy Singleton [id number] 11:30:00 11:30:00 MD [facility] [id number] Health [id number] [employer], [employer]. [id number] 2015-03-16 2015-03-16 Outpatient RICARDO Guido [id number] 09:30:00 09:30:00 [facility] [id number] Health [id number] [place], [employer]. [id number] 2015-03-09 2015-03-09 Outpatient RICARDO Guido [id number] 09:00:00 09:00:00 [facility] [id number] Health [id number] [place], [employer]. [id number] 2015-03-07 2015-03-07 Outpatient RICARDO Guido [id number] 15:00:00 15:00:00 [facility] [id number] Health [id number] [employer], [employer]. [id number] Social History Smoking Status Start Date Stop Date Yes - but quit (former) 2020-08-21 00:00:00 2020-08-21 00:00 :00 Social History Observation Description Sex Male Vital Signs Vital Name Observation Time Observation Value Comments Heart rate 2020-08-21 13:41:23 98.0000 /min Resp rate 2020-08-21 13:41:23 22.0000 /min BP sys 2020-08-21 13:41:23 102.0000 mm[Hg] Body temperature 2020-08-21 13:41:23 97.2000 [degF] Weight 2020-08-21 13:41:23 211.6000 [lb_av] BMI 2020-08-21 13:41:23 27.7700 BP clark 2020-08-21 13:41:23 41.0000 mm[Hg] Bdy height 2020-08-21 13:41:23 73.1999 [in_i] SaO2% BldA PulseOx 2020-08-21 13:41:23 98.0000 % Bdy height 2020-08-15 14:38:04 73.1999 [in_i] Body temperature 2020-08-15 14:38:04 97.0000 [degF] BMI 2020-07-31 14:04:46 27.2100 BP clark 2020-07-31 14:04:46 85.0000 mm[Hg] Bdy height 2020-07-31 14:04:46 73.1999 [in_i] SaO2% BldA PulseOx 2020-07-31 14:04:46 93.0000 % Heart rate 2020-07-31 14:04:46 90.0000 /min Resp rate 2020-07-31 14:04:46 18.0000 /min BP sys 2020-07-31 14:04:46 139.0000 mm[Hg] Body temperature 2020-07-31 14:04:46 97.0000 [degF] Weight 2020-07-31 14:04:46 207.4000 [lb_av] BMI 2020-06-30 10:31:58 29.3900 BP clark 2020-06-30 10:31:58 84.0000 mm[Hg] Bdy height 2020-06-30 10:31:58 73.1999 [in_i] SaO2% BldA PulseOx 2020-06-30 10:31:58 97.0000 % Heart rate 2020-06-30 10:31:58 80.0000 /min Resp rate 2020-06-30 10:31:58 22.0000 /min BP sys 2020-06-30 10:31:58 134.0000 mm[Hg] Body temperature 2020-06-30 10:31:58 97.1000 [degF] Weight 2020-06-30 10:31:58 224.0000 [lb_av] BMI 2020-05-25 14:48:41 30.9900 BP clark 2020-05-25 14:48:41 69.0000 mm[Hg] Bdy height 2020-05-25 14:48:41 73.2000 [in_i] SaO2% BldA PulseOx 2020-05-25 14:48:41 98.0000 % Heart rate 2020-05-25 14:48:41 97.0000 /min Resp rate 2020-05-25 14:48:41 22.0000 /min BP sys 2020-05-25 14:48:41 119.0000 mm[Hg] Body temperature 2020-05-25 14:48:41 96.6000 [degF] Weight 2020-05-25 14:48:41 236.2000 [lb_av]
== END 2020-08-23 12:00 | disposition home or self-care (01) ==
LOC: II 08:05 → 5TH 08:36 → II 12:00
PROVIDERS: ATTEND Internal Medicine
DX: Z51.11 Encounter for antineoplastic chemotherapy (principal); C34.2 Malignant neoplasm of middle lobe, bronchus or lung
CPT/HCPCS: 96413; 96415; 96367; J9181; J7050; J7040; J1100

== ENCOUNTER 2020-08-24 08:02 | Outpatient (CLI) | payer MEDICARE, OTHER ==
[~2020-08-24 08:02] MED LIST changes: +NORMAL SALINE 250 ML @ KVO IV PRN; -NORMAL SALINE 250 ML IV PRN
[2020-08-24 09:24] VITALS: BP 123/56
--- OUTSIDE RECORDS SUMMARY | 2020-08-25 15:02 | XMS REPORT ---
:1950 [facility] [address] [place] [address] Care Team Providers Name Role Phone Rosalino Pcihardo, Ephraim Attending Clinician Unavailable Kathy FROST, Lauro Attending Clinician Unavailable Brielle FROST, Jaja Attending Clinician Unavailable Keiko Guido Attending Clinician Unavailable Allergies, Adverse Reactions, Alerts [...] No 2 Sulfate 0-29 00:00: 00 Xanax 2019- Yes 1 0-26 00:00: 00 Sodium 2019- Yes 250mL Chloride 0-20 00:00: 00 Carboplatin 2019-10 Yes 625mg 0-20 00:00: 00 Dexamethaso 2019-10 Yes 10mg ne Sodium 0-20 Phosphate 00:00: 00 Etoposide 2019-10 Yes 177mg 0-20 00:00: 00 Medrol 2019- Yes 0-20 00:00: 00 Fosaprepita 2019-10 2020- No 150mg nt 0-20 08-23 Dimeglumine 00:00: 00:00 00 :00 Palonosetro 2019-10 2020- No .25mg n HCl 0-20 08-23 00:00: 00:00 00 :00 Tecentriq 2019-10 2020- No 1200mg 0-20 08-23 00:00: 00:00 00 :00 Omeprazole 2019- Yes 1 0-19 00:00: 00 Ondansetron 2019- Yes 1 HCl 0-19 00:00: 00 Promethazin 2020-1 Yes 1 e HCl 0-19 00:00: 00 Megestrol 2020-1 Yes 10mL Acetate 0-19 00:00: 00 Clindamycin 2020-0 Yes 1 HCl 9-16 00:00: 00 Zithromax 2020-0 2020- No Z-Zack - 10-20 00:00: 16:01 00 :02 Aspirin 81 [...] (test code = MPV) 7.9000 fL 6.8000-10.6000 [id number] 13:31:00 Test Item Value Reference Range Comments [...] Protein, 6.9000 g/dL 6.4000-8.10 00 Total) eGFR -Thai (test code = eGFR 135.0000 60.0000- 200.0000 -Thai) eGFR Fhi-Ukvpxxc-Xwdebaza (test code = 111.0000 60.0000-2 00.0000 eGFR Gkx-Fyjsjrg-Uejqwgcn) Magnesium (test code = Magnesium) 1.6000 mg/dL 1.6000-2.3000 [id number] 14:28:00 Test Item Value Reference Range Comments [...] code = Creatinine) 0.8000 mg/dL 0.5000-1.500 0 [id number] 14:59:51 Test Item Value Reference Range Comments Creatinine (test code = Creatinine) 0.8000 mg/dL 0.5000-1.500 0 Cr Clearance (Est) (test code = Cr Clearance 114.3300 85. 0000-125.0000 (Est)) [id number] 14:52:00 Test Item Value Reference Range Comments [...] Iron 12.0000 % 15.0000-55 .0000 Saturation) Iron, [id number] 14:52:00 Test Item Value Reference Range Comments [...] code = Ferritin) 1128.0000 ng/mL 30.0000-400.0000 Alkaline [id number] 13:45:00 Test Item Value Reference Range Comments [...] code = Sodium) 134.0000 mmol/L 128.0000-145.0000 eGFR -Thai (test code = eGFR 116.0000 60.0000- 200.0000 -Thai) eGFR Eiy-Qspgnde-Qkbyrwjm (test code = 96.0000 60.0000-2 00.0000 eGFR Rwg-Utaqzxh-Aevuixdj) Cr Clearance (Est) (test code = Cr [...] (test code = Calcium) 8.8900 mg/dL 8.0000-10.3000 [id number] 13:45:00 Test Item Value Reference Range Comments [...] RBC (test code = RBC) 3.8600 3.7000-4.9000 [id number] 13:45:00 Test Item Value Reference Range Comments WBC (test code = WBC) 8.0000 4.0000-10.0000 Lymphocytes % (test code = Lymphocytes %) 7.5000 % 22.400 0-43.6000 MID% (test code = MID%) 2.3000 % 1.1999-11.1999 Neutrophils % (test code = Neutrophils %) [...] (test code = MPV) 8.6000 fL 6.8000-10.6000 [id number] 13:45:00 Test Item Value Reference Range Comments [...] Protein, 6.4000 g/dL 6.4000-8.10 00 Total) eGFR -Thai (test code = eGFR 116.0000 60.0000- 200.0000 -Thai) eGFR Kzd-Pimptzs-Kymzhylp (test code = 96.0000 60.0000-2 00.0000 eGFR Lbe-Gyjerfx-Kfyiwmyx) GEOVANNA [id number] 09:44:00 Test Item Value Reference Range Comments [...] code = BUN) 15 MG/DL 7-18 LIPID [id number] 09:44:00 Test Item Value Reference Range Comments TGL (test code = TGL) 193 MG/DL 30-200 CHOL (test code = CHOL) 214 MG/DL 140-200 DLDL (test code = DLDL) 144 MG/DL 100-130 CHD (test code = CHD) 14.95 HDL (test code = HDL) 32 MG/DL 32-96 CBC WITH [id number] 09:44:00 Test Item Value Reference Range Comments [...] = MPV) 11.0 H FL 7.5-10.7 LYTES [id number] 08:38:00 Test Item Value Reference Range Comments [...] code = CR) 1.1 MG/DL 0.4-1.3 Creatinine [id number] 09:50:00 Test Item Value Reference Range Comments Creatinine Clearance (test code = 677150) 127 mL/min 97-137 Creatinine, Urine (test code = 550159) 84.2 mg/dL 22.0-328. 0 Creatinine, Serum (test code = 218655) 1.24 mg/dL 0.76-1.27 eGFR If NonAfricn Am (test code = 701324) 61 mL/min/1.73 >59 eGFR If Africn Am (test code = 469286) 70 mL/min/1.73 >59 Creatinine, Ur 24hr (test code = 692020) 2273.4 mg/24 hr 1000.0- 2000.0 Protein Total, Qn, 24-Hr [id number] 09:50:00 Test Item Value Reference Range Comments Prot,24hr calculated (test code = 786093) <108.0 mg/24 hr 30.0-1 50.0 Protein,Total,Urine (test code = 334712) <4.0 mg/dL 0.0-15. 0 Prot,24hr calculated (test code = 3661736) <108.0 mg/24 hr 30.0- 150.0 Protein,Total,Urine (test code = 5338314) <4.0 mg/dL 0.0-15 .0 Protein,Total,Urine (test code = 2167148) <4.0 mg/dL 0.0-15 .0 Prot,24hr calculated (test code = 7697963) <108.0 mg/24 hr 30.0- 150.0 CHEM [id number] 09:01:00 Test Item Value Reference Range Comments [...] code = CR) 1.3 MG/DL 0.4-1.3 LIPID [id number] 09:01:00 Test Item Value Reference Range Comments HDL (test code = HDL) 32 MG/DL 32-96 CHD (test code = CHD) 20.51 DLDL (test code = DLDL) 108 MG/DL 100-130 TGL (test code = TGL) 88 MG/DL 30-200 CHOL (test code = CHOL) 156 MG/DL 140-200 CK [id number] 09:01:00 Test Item Value Reference Range Comments CKT (test code = CKT) 158 U/L 39-308 [id number] 11:55:00 Test Item Value Reference Range Comments PTT (test code = PTT) 25.7 SEC 21.7-30.5 [id number] 11:55:00 Test Item Value Reference Range Comments PT (test code = PT) 9.9 SEC 9.6-12.2 INR (test code = INR) 1.0 0.9-1.1 [id number] 11:55:00 Test Item Value Reference Range Comments [...] code = HCT) 39.7 % 37.7-46.5 CHEM [id number] 11:55:00 Test Item Value Reference Range Comments [...] (test code = AST) 27 U/L 9-37 [id number] 15:39:00 Test Item Value Reference Range Comments PTT (test code = PTT) 26.5 SEC 21.7-30.5 [id number] 15:39:00 Test Item Value Reference Range Comments [...] code = MCH) 31.5 PQ 26.8-33.2 CHEM [id number] 15:39:00 Test Item Value Reference Range Comments [...] (test code = GLU) 115 MG/DL 70-110 [id number] 15:39:00 Test Item Value Reference Range Comments INR (test code = INR) 1.0 0.9-1.1 PT (test code = PT) 9.9 SEC 9.6-12.2 CK [id number] 09:10:00 Test Item Value Reference Range Comments CKT (test code = CKT) 286 U/L 39-308 [id number] 09:10:00 Test Item Value Reference Range Comments [...] code = HCT) 42.9 % 37.7-46.5 CHEM [id number] 09:10:00 Test Item Value Reference Range Comments [...] (test code = CO2) 24.3 MMOL/L 21.0-32.0 [id number] 09:10:00 Test Item Value Reference Range Comments TSH (test code = TSH) 1.58 UIU/ML 0.50-5.80 LIPID [id number] 09:10:00 Test Item Value Reference Range Comments CHOL (test code = CHOL) 207 MG/DL 140-200 HDL (test code = HDL) 32 MG/DL 32-96 CHD (test code = CHD) 15.46 DLDL (test code = DLDL) 151 MG/DL 100-130 TGL (test code = TGL) 124 MG/DL 30-200 Assessments Condition Name Status Diagnosis Date Treating Clinici an 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 Essential (primary) hypertension Active Hyperlipidemia, unspecified Active Myalgia Active 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 Essential (primary) hypertension Active Hyperlipidemia, unspecified Active Myalgia Active Abnormal results of kidney function studies Active 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 Essential (primary) hypertension Active Hyperlipidemia, unspecified Active Abnormal results of kidney function studies Active Hyperlipidemia, unspecified Active Chronic obstructive pulmonary disease, Active unspecified Essential (primary) hypertension Active Hyperlipidemia, unspecified Active 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 Hyperlipidemia, unspecified Active Essential (primary) hypertension Active 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 Hypertension - Benign (Essential) Active Pain - Chest Active Hyperlipidemia (Unspecified) Active Pain - Chest Active 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[place]) Active Angina Pectoris (Unspecified) Active Hypertension - Benign (Essential) Active Disease - Arteriosclerotic Heart (ASHD) Active Hyperlipidemia (Unspecified) Active Obstruction - Airway (Chronic)(COPD) Active Hypertension - Unspecified (Essential) Active Hyperlipidemia (Unspecified) Active 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[place]) Active Hyperlipidemia (Unspecified) Active Hypertension - Benign (Essential) Active 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[place]) Active Pain - Chest Active Hyperlipidemia (Unspecified) [...] Date/Time Type Type Clinicians Facility Department ID 2020-08-24 2020-08-24 Outpatient Arron Jerry rn [id number] 00:00:00 00:00:00 [facility] Oncology Oncology [facility] 2020-08-23 2020-08-23 Outpatient Arron Jerry rn [id number] 00:00:00 00:00:00 [facility] Oncology Oncology [facility] 2020-08-22 2020-08-22 Outpatient Arron Jerry rn [id number] 00:00:00 00:00:00 [facility] Medical Oncology [facility] [place] 2020-08-21 2020-08-21 [facility]Rosalino [facility] [id number] 00:00:00 00:00:00 Luci Grullon [facility] [place] 2020-08-15 2020-08-15 Outpatient Arron Jerry rn [id number] 00:00:00 00:00:00 [facility] [place] 2020-08-14 2020-08-14 Outpatient Arron Heller n [id number] 00:00:00 00:00:00 [facility] Medical Oncology [facility] [place] 2020-08-11 2020-08-11 Outpatient Arron Heller n [id number] 00:00:00 00:00:00 [facility] Medical Oncology [facility] [place] 2020-08-10 2020-08-10 Outpatient Arron Heller n [id number] 00:00:00 00:00:00 [facility] Oncology [facility] [place] 2020-08-08 2020-08-08 Outpatient Arron Jerry rn [id number] 00:00:00 00:00:00 [facility] Medical Oncology [facility] [place] 2020-08-07 2020-08-07 Outpatient Arron Heller n [id number] 00:00:00 00:00:00 [facility] Oncology [facility] [place] 2020-08-03 2020-08-03 Outpatient Arron Jerry rn [id number] 00:00:00 00:00:00 [facility] [place] 2020-08-02 2020-08-02 Outpatient Arron Jerry rn [id number] 00:00:00 00:00:00 [facility] Medical Oncology [facility] [place] 2020-08-01 2020-08-01 Outpatient Arron Jerry rn [id number] 00:00:00 00:00:00 [facility] [place] 2020-07-31 2020-07-31 Arron Jerry [id number] 00:00:00 00:00:00 [facility] Medical Oncology [facility] [place] 2020-07-21 2020-07-21 Outpatient Arron Heller n [id number] 00:00:00 00:00:00 [facility] [place] 2020-07-20 2020-07-20 Outpatient Arron Heller n [id number] 00:00:00 00:00:00 [facility] Oncology [facility] [place] 2020-07-12 2020-07-12 Outpatient Arron Jerry rn [id number] 00:00:00 00:00:00 [facility] [place] 2020-07-07 2020-07-07 Outpatient Arron Heller n [id number] 00:00:00 00:00:00 [facility] Oncology [facility] [place] 2020-07-05 2020-07-05 Outpatient Sammonica Heller n [id number] 00:00:00 00:00:00 [facility] Oncology [facility] [place] 2020-07-04 2020-07-04 Outpatient Arron Heller n [id number] 00:00:00 00:00:00 [facility] Oncology [facility] [place] 2020-07-03 2020-07-03 Outpatient Arron Heller n [id number] 00:00:00 00:00:00 [facility] Oncology [facility] [place] 2020-06-30 2020-06-30 OttonielRosalino [facility] [id number] 00:00:00 00:00:00 Vivien [facility] Oncology [facility] [place] 2020-06-29 2020-06-29 Outpatient Arron Heller n [id number] 00:00:00 00:00:00 [facility] Oncology Oncology [facility] 2020-06-28 2020-06-28 Outpatient Arron Jerry rn [id number] 00:00:00 00:00:00 [facility] [place] 2020-06-17 2020-06-17 Outpatient Arron Heller n [id number] 00:00:00 00:00:00 [facility] Oncology [facility] [place] 2020-06-14 2020-06-14 Outpatient Arron Jerry rn [id number] 00:00:00 00:00:00 [facility] [place] 2020-06-13 2020-06-13 Outpatient Arron Jerry rn [id number] 00:00:00 00:00:00 [facility] Oncology Oncology [facility] 2020-05-29 2020-05-29 Outpatient Arron Heller n [id number] 00:00:00 00:00:00 [facility] Oncology [facility] [place] 2020-05-26 2020-05-26 Outpatient [facility] n [id number] 00:00:00 00:00:00 Medical Medical Oncology [facility] [place] 2020-05-25 2020-05-25 Rosalino Alcazar [facility] [id number] 00:00:00 00:00:00 Vivien Ye [facility] Oncology [facility] [place] 2020-05-23 2020-05-23 Outpatient [facility] n [id number] 00:00:00 00:00:00 [facility] Medical On[facility] [place] 2020-05-22 2020-05-22 Outpatient [facility] n [id number] 00:00:00 00:00:00 [facility] Oncology [facility] [place] 2020-05-21 2020-05-21 Outpatient [facility] n [id number] 00:00:00 00:00:00 [facility] Oncology [facility] [place] 2016-04-17 2016-04-17 Outpatient Kathy Singleton [id number] 10:30:00 10:30:00 MD [facility] [id number] [facility] [id number] [place] [id number] 2016-02-21 2016-02-21 Outpatient Kathy Singleton [id number] 09:45:00 09:45:00 MD [facility] [id number] [facility] [id number] [place] [id number] 2016-01-09 2016-01-09 Outpatient Brielle FROST RICARDO Singleton [id number] 08:45:00 08:45:00 [facility] [id number] [facility] [id number] [place] [id number] 2015-10-18 2015-10-18 Outpatient Kathy Singleton [id number] 10:15:00 10:15:00 MD [facility] [id number] [facility] [id number] [place] [id number] 2015-09-27 2015-09-27 Outpatient Brielle FROSTRICARDO [id number] 08:45:00 08:45:00 [facility] [id number] [facility] [id number] [place] [id number] 2015-09-19 2015-09-19 Outpatient Brielle FROST, RICARDO Singleton [id number] 08:45:00 08:45:00 [facility] [id number] Health [id number] [place] [id number] 2015-09-18 2015-09-18 Outpatient Brielle FROSTRICARDO [id number] 10:15:00 10:15:00 [facility] [id number] Health [id number] [place], [employer] [id number] 2015-07-26 2015-07-26 Outpatient Kathy Singleton [id number] 11:00:00 11:00:00 MD [facility] [id number] Health [id number] [place], [employer] [id number] 2015-06-28 2015-06-28 Outpatient Kathy Singleton [id number] 11:30:00 11:30:00 MD [facility] [id number] [facility] [id number] [place], [employer] [id number] 2015-06-27 2015-06-27 Outpatient Kathy Singleton [id number] 00:00:00 00:00:00 MD [facility] [id number] Health [id number] [place], [employer] [id number] 2015-06-15 2015-06-15 Outpatient Brielle FROSTRICARDO [id number] 10:15:00 10:15:00 [facility] [id number] Health [id number] [place], [employer] [id number] 2015-06-14 2015-06-14 Outpatient Kathy Singleton [id number] 10:00:00 10:00:00 MD [facility] [id number] Health [id number] [place], [employer] [id number] 2015-05-03 2015-05-03 Outpatient Kathy Singleton [id number] 09:45:00 09:45:00 MD [facility] [id number] Health [id number] [place], [employer] [id number] 2015-03-30 2015-03-30 Outpatient Kathy Singleton [id number] 15:15:00 15:15:00 , [facility] [id number] -A Health [id number] [place], [employer] [id number] 2015-03-30 2015-03-30 Outpatient Kathy Singleton [id number] 11:00:00 11:00:00 , [facility] [id number] -[id number] Health [id number] [facility] [id number] 2015-03-30 2015-03-30 Outpatient Kathy Singleton [id number] 10:30:00 10:30:00 , [facility] [id number] Health [id number] [place] [id number] 2015-03-22 2015-03-22 Outpatient Kathy Singleton [id number] 11:30:00 11:30:00 , [facility] [id number] -[id number] Health [id number] [place] [id number] 2015-03-16 2015-03-16 Outpatient RICARDO Guido [id number] 09:30:00 09:30:[address] [facility] [id number] Health [id number] [place] [id number] 2015-03-09 2015-03-09 Outpatient RICARDO Guido [id number] 09:00:00 09:00:[address] [facility] [id number] Health [id number] [place] [id number] 2015-03-07 2015-03-07 Outpatient RICARDO Guido [id number] 15:00:00 15:00:[address] [facility] [id number] Health [id number] [place] [id number] Social History Smoking Status Start Date Stop Date Yes - but quit (former) 2020-08-21 00:00:00 2020-08-21 00:00 :00 Social History Observation Description Sex Male Vital Signs Vital Name Observation Time Observation Value Comments SaO2% BldA PulseOx 2020-08-21 13:41:23 98.0000 % Heart rate 2020-08-21 13:41:23 98.0000 /min Resp rate 2020-08-21 13:41:23 22.0000 /min BP sys 2020-08-21 13:41:23 102.0000 mm[Hg] Body temperature 2020-08-21 13:41:23 97.2000 [degF] Weight 2020-08-21 13:41:23 211.6000 [lb_av] BMI 2020-08-21 13:41:23 27.7700 BP clark 2020-08-21 13:41:23 41.0000 mm[Hg] Bdy height 2020-08-21 13:41:23 73.1999 [in_i] Bdy height 2020-08-15 14:38:04 73.1999 [in_i] Body [...]
== END 2020-08-24 11:00 | disposition home or self-care (01) ==
LOC: II 08:02 → 5TH 08:05 → II 11:00
PROVIDERS: ATTEND Internal Medicine
DX: Z51.11 Encounter for antineoplastic chemotherapy (principal); C34.2 Malignant neoplasm of middle lobe, bronchus or lung
CPT/HCPCS: 96413; 96367; J9181; J7050; J7040; J1100

== ENCOUNTER → 2020-09-05 | Outpatient (CLI) | payer MEDICARE, OTHER ==
--- NOTE | 2020-09-05 13:35 | RADIOLOGY REPORT (SQ) ---
EXAM DESCRIPTION: CT CHEST WITHOUT IMAGES COMPLETED DATE/TIME: 09/05/2020 8:05 am REASON FOR STUDY: C34.2 MALIGNANT NEOPLASM OF MIDDLE LOBE, BRONCHUS OR LUNG C34.2 MALIGNANT NEOPLAS M OF MIDDLE LOBE, BRONCHUS OR LUNG COMPARISON: CT chest 05/21/2020. TECHNIQUE: CT scan performed of the chest without intravenous contrast. Images reviewed with lung, soft tissue and bone windows. Reconstructed coronal and sagittal MPR images reviewed. All images st ored on PACS. All CT scanners at this facility use dose modulation, iterative reconstruction, and/or weight based d osing when appropriate to reduce radiation dose to as low as reasonably achievable (ALARA). [facility]: Dose Right [facility]: CareDose [facility]: Dose Right [facility]: Teradose 4D [facility]: [employer] Technologies RADIATION DOSE: CT Rad equipment meets quality standard of care and radiation dose reduction techniq ues were employed. CTDIvol: 9.8 mGy. DLP: 461 mGy-cm. mGy. LIMITATIONS: No technical limitations. FINDINGS: LUNGS AND PLEURA: Interval decrease in size of consolidation in the right upper lobe now m easuring about 6.3 x 5.2 cm with associated nodular septal wall thickening and several satellite nodu les. There is a medial satellite nodule at the right hilum measuring about 1.2 cm and a lateral sate llite nodule at the right lateral pleura measuring 1.1 cm. Previously these were all encompassed in the consolidation on prior CT. Interval increase in small right pleural effusion. The right lower l obe is clear. The left lung remains clear. Background mild pulmonary emphysema. HILAR AND MEDIASTINAL STRUCTURES: Interval decrease in size of mediastinal lymphadenopathy, difficult to evaluate without IV contrast. An example precarinal node now measures about 3.8 x 2.5 cm, previo usly 4.7 x 3.8 cm. Evaluation of the hilar lymph nodes is limited however these appear grossly small er than on prior exam. Supraclavicular adenopathy has also decreased, with a right supraclavicular l ymph node now measuring 2.1 x 1.8 cm, previously 3 x 2.6 cm. HEART AND VASCULAR STRUCTURES: Heart has normal size. A small to moderate pericardial effusion/ megan cardial thickening is stable from prior. Thoracic aorta has normal caliber. UPPER ABDOMEN: Bilateral renal calculi. No hydronephrosis or perinephric fluid. A left hepatic cyst is unchanged. No upper abdominal adenopathy. THYROID AND OTHER SOFT TISSUES: No masses. No adenopathy. BONES: No suspicious bone lesions. Spondylosis and degenerative disc disease in the lower thoracic s pine. HARDWARE: None in the chest. OTHER: No other significant findings. IMPRESSION: 1. Interval decrease in the right upper lobe masslike consolidation. Decreasing mediastinal and shahrzad r lymphadenopathy. Findings are consistent with response to therapy. 2. Slight increase in small right pleural effusion. 3. Small to moderate pericardial effusion/pericardial thickening stable from prior. 4. Nonobstructing bilateral renal calculi. TECHNICAL DOCUMENTATION: JOB ID: [id number] Quality ID # [id number]: Final reports with documentation of one or more dose reduction techniques (e.g., Au tomated exposure control, adjustment of the mA and/or kV according to patient size, use of iterative reconstruction technique) 2010 [employer]- All Rights Reserved Reading location - IP/workstation name: [email or web address]
== END ==
LOC: RAD 08:53
PROVIDERS: ATTEND Internal Medicine
DX: C34.2 Malignant neoplasm of middle lobe, bronchus or lung (principal)
CPT/HCPCS: 71250

== ENCOUNTER 2020-09-12 08:06 | Outpatient (CLI) | payer MEDICARE, OTHER ==
[~2020-09-12 08:06] MED LIST changes: +ATEZOLIZUMAB 1,200 MG in NORMAL SALINE 250 ML IV PRN; +CARBOPLATIN 625 MG in NORMAL SALINE 250 ML IV PRN; +FOSAPREPITANT DIMEGLUMINE 150 MG in NORMAL SALINE 150 ML IV PRN; -NORMAL SALINE 250 ML @ KVO IV PRN; +NORMAL SALINE 250 ML IV PRN; +PALONOSETRON 0.25 MG/5 ML SDV IV PRN
[2020-09-12] MEDS ORDERED: DENOSUMAB 120 MG in SYRINGE, DISPOSABLE, 1 EACH SUBCUT PRN (08:29)
[2020-09-12 09:33] VITALS: BP 122/57
== END 2020-09-12 13:10 | disposition home or self-care (01) ==
LOC: II 08:06 → 5TH 08:08 → II 13:10
PROVIDERS: ATTEND Internal Medicine
DX: Z51.11 Encounter for antineoplastic chemotherapy (principal); C34.2 Malignant neoplasm of middle lobe, bronchus or lung; C79.51 Secondary malignant neoplasm of bone
CPT/HCPCS: 96401; 96413; 96367; 96375; 96417; J9045; J9181; J7050 ×2; J7040; J3490; J1100; J0897; J1453; J2469; J9022

== ENCOUNTER 2020-09-13 09:19 | Outpatient (CLI) | payer MEDICARE, OTHER ==
[~2020-09-13 09:19] MED LIST changes: -ATEZOLIZUMAB 1,200 MG in NORMAL SALINE 250 ML IV PRN; -CARBOPLATIN 625 MG in NORMAL SALINE 250 ML IV PRN; +DEXAMETHASONE SOD PHOSPHATE IV PRN; +DEXTROSE 5% IV PRN; -FOSAPREPITANT DIMEGLUMINE 150 MG in NORMAL SALINE 150 ML IV PRN; -PALONOSETRON 0.25 MG/5 ML SDV IV PRN; +WATER IV PRN
[2020-09-13 10:16] VITALS: BP 120/54
== END 2020-09-13 11:00 | disposition home or self-care (01) ==
LOC: II 09:19 → 5TH 09:37 → II 11:00
PROVIDERS: ATTEND Internal Medicine
DX: Z51.11 Encounter for antineoplastic chemotherapy (principal); C34.2 Malignant neoplasm of middle lobe, bronchus or lung; C79.51 Secondary malignant neoplasm of bone
CPT/HCPCS: 96413; 96367; J9181; J7050; J7040; J1100; J7060

== ENCOUNTER 2020-09-14 08:09 | Outpatient (CLI) | payer MEDICARE, OTHER ==
[~2020-09-14 08:09] MED LIST changes: -DEXAMETHASONE SOD PHOSPHATE IV PRN; -DEXTROSE 5% IV PRN; -WATER IV PRN
[2020-09-14 08:20] VITALS: BP 126/65
== END 2020-09-14 10:30 | disposition home or self-care (01) ==
LOC: II 08:09 → 5TH 08:17 → II 10:30
PROVIDERS: ATTEND Internal Medicine
DX: Z51.11 Encounter for antineoplastic chemotherapy (principal); C34.2 Malignant neoplasm of middle lobe, bronchus or lung; C79.51 Secondary malignant neoplasm of bone
CPT/HCPCS: 96413; 96367; J9181; J7050; J7040; J1100

== ENCOUNTER 2020-10-03 07:58 | Outpatient (CLI) | payer MEDICARE, OTHER ==
[~2020-10-03 07:58] MED LIST changes: +ATEZOLIZUMAB 1,200 MG in NORMAL SALINE 250 ML IV PRN; +CARBOPLATIN 625 MG in NORMAL SALINE 250 ML IV PRN; +FOSAPREPITANT 150 MG in NS 150 ML IV PRN; +PALONOSETRON 0.25 MG/5 ML VIAL IV PRN
[2020-10-03 08:23] VITALS: BP 129/59
== END 2020-10-03 13:27 | disposition home or self-care (01) ==
LOC: II 07:58 → 5TH 08:00 → II 13:27
PROVIDERS: ATTEND Internal Medicine
DX: Z51.11 Encounter for antineoplastic chemotherapy (principal); C34.2 Malignant neoplasm of middle lobe, bronchus or lung
CPT/HCPCS: 96413; 96367; 96375; 96417; J9045; J9181; J7050 ×2; J7040; J1100; J1453; J2469; J9022

== ENCOUNTER 2020-10-04 08:25 | Outpatient (CLI) | payer MEDICARE, OTHER ==
[~2020-10-04 08:25] MED LIST changes: -ATEZOLIZUMAB 1,200 MG in NORMAL SALINE 250 ML IV PRN; -CARBOPLATIN 625 MG in NORMAL SALINE 250 ML IV PRN; -FOSAPREPITANT 150 MG in NS 150 ML IV PRN; +NORMAL SALINE 250 ML @ KVO IV PRN; -NORMAL SALINE 250 ML IV PRN; -PALONOSETRON 0.25 MG/5 ML VIAL IV PRN
[2020-10-04 09:05] VITALS: BP 124/64
== END 2020-10-04 11:15 | disposition home or self-care (01) ==
LOC: II 08:25 → 5TH 08:28 → II 11:15
PROVIDERS: ATTEND Internal Medicine
DX: Z51.11 Encounter for antineoplastic chemotherapy (principal); C34.2 Malignant neoplasm of middle lobe, bronchus or lung
CPT/HCPCS: 96413; 96367; J9181; J7050; J7040; J1100

== ENCOUNTER 2020-10-05 07:59 | Outpatient (CLI) | payer MEDICARE, OTHER ==
[~2020-10-05 07:59] MED LIST changes: -NORMAL SALINE 250 ML @ KVO IV PRN; +NORMAL SALINE 250 ML IV PRN
[2020-10-05 10:04] VITALS: BP 118/59
== END 2020-10-05 11:23 | disposition home or self-care (01) ==
LOC: II 07:59 → 5TH 08:00 → II 11:23
PROVIDERS: ATTEND Internal Medicine
DX: Z51.11 Encounter for antineoplastic chemotherapy (principal); C34.2 Malignant neoplasm of middle lobe, bronchus or lung
CPT/HCPCS: 96413; 96367; J9181; J7050; J7040; J1100

== ENCOUNTER 2020-10-10 10:10 | Outpatient (CLI) | payer MEDICARE, OTHER ==
[~2020-10-10 10:10] MED LIST changes: +DENOSUMAB 120 MG in SYRINGE, DISPOSABLE, 1 EACH SUBCUT PRN; -DEXAMETHASONE SOD PHOSPHATE 10 MG in NORMAL SALINE 100 ML IV PRN; -ETOPOSIDE IV PRN; -NORMAL SALINE 250 ML IV PRN; -NORMAL SALINE IV PRN
[2020-10-10 10:18] VITALS: BP 153/64
== END 2020-10-10 12:28 | disposition home or self-care (01) ==
LOC: II 10:10 → 5TH 10:12 → II 12:28
PROVIDERS: ATTEND Internal Medicine
DX: Z51.11 Encounter for antineoplastic chemotherapy (principal); C34.2 Malignant neoplasm of middle lobe, bronchus or lung
CPT/HCPCS: 96401; J3490; J0897

== ENCOUNTER → 2020-10-17 | Outpatient (CLI) | payer MEDICARE, OTHER ==
--- NOTE | 2020-10-17 12:35 | RADIOLOGY REPORT (SQ) ---
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 Images reviewed with lung, soft tissue and bone windows. Reconstructed coronal a nd sagittal MPR images reviewed. All images stored on PACS. All CT scanners at this facility use dose modulation, iterative reconstruction, and/or weight based d osing when appropriate to reduce radiation dose to as low as reasonably achievable (ALARA). [facility]: Dose Right [facility]: CareDose [facility]: Dose Right [facility]: Teradose 4D [facility]: Wattics RADIATION DOSE: CT Rad equipment meets quality standard of care and radiation dose reduction techniq ues were employed. CTDIvol: 10.2 - 13.1 mGy. DLP: 1956 mGy-cm. . LIMITATIONS: None. FINDINGS: AXILLAE: No adenopathy. CHEST WALL: No masses. No subcutaneous air. LUNGS: There is persistent masslike opacification in the right upper lobe. There appears to be invol vement of a slightly smaller area, but there is increased fairly homogeneous density. There is a sta ble 4 x 8 mm nodular density in the anteromedial aspect of the right upper lobe on image 43. There i s a somewhat spiculated 15 mm density on image 58 in the right upper lobe. On the prior study this m easures 21 mm. There is a 10 mm subpleural nodule on the right on image 70. On the prior study this measures 17 mm. There is a very small persistent right pleural effusion that is improved compared t o the earlier study. PLEURA: No effusions. No calcifications. THYROID: No masses or significant asymmetry. HILAR AND MEDIASTINAL STRUCTURES: Hilar and mediastinal adenopathy appears slightly improved. AORTA AND GREAT VESSELS: No aneurysm. No dissection. PULMONARY ARTERIES: No identified pulmonary emboli. Study not optimized for the pulmonary arteries. HEART: There is minimal pericardial effusion with improvement. HARDWARE AND LIFELINES: None. BONES: No significant finding. OTHER: No other significant finding. IMPRESSION: There are persistent findings in the right lung as described. There is improvement comp ared to the earlier study. There continues to be prominent area of dense opacification/consolidation in the right upper lobe. There is slight improvement in the hilar and mediastinal adenopathy. Mini mal pericardial effusion with improvement. COMPARISON: CT abdomen pelvis 07/26/2017 RADIATION DOSE: CT Rad equipment meets quality standard of care and radiation dose reduction techniq ues were employed. CTDIvol: 10.2 - 13.1 mGy. DLP: 1956 mGy-cm. mGy. TECHNIQUE: CT scan of the abdomen and pelvis performed with intravenous and oral contrast using arlene jacky scanning technique with dynamic intravenous contrast injection. Images reviewed with lung, soft tissue and bone windows. Reconstructed coronal and sagittal MPR images reviewed. Delayed images for evaluation of the urinary system also acquired and evaluated. All images stored on PACS. All CT scanners at this facility use dose modulation, iterative reconstruction, and/or weight based d osing when appropriate to reduce radiation dose to as low as reasonably achievable (ALARA). [facility]: Dose Right [facility]: SureCare [facility]: Dose Right [facility]: Teradose 4D [facility]: Wattics FINDINGS: LIVER: There is a small cyst in the left lobe of the liver. No hepatic masses are seen. SPLEEN: Normal size. No focal lesions. PANCREAS: No masses. No significant calcifications. No adjacent inflammation or peripancreatic flui d collections. Pancreatic duct not dilated. GALLBLADDER: No identified stones by CT criteria. No inflammatory changes to suggest cholecystitis. ADRENAL GLANDS: No significant masses or asymmetry. RIGHT KIDNEY AND URETER: No solid masses. Large nonobstructing intrarenal calculus. No hydronephr osis or hydroureter. LEFT KIDNEY AND URETER: No solid masses. Small nonobstructing intrarenal calculus. No hydronephro sis or hydroureter. AORTA AND VESSELS: No aneurysm. No dissection. Renal arteries, SMA, celiac without stenosis. RETROPERITONEUM: No retroperitoneal adenopathy, hemorrhage or masses. LARGE AND SMALL BOWEL: No dilatation. No masses. No wall thickening. APPENDIX: Normal. ABDOMINAL WALL: No hernia or masses. PERITONEAL CAVITY: No free air. No free fluid. No peritoneal implants or masses. PELVIS: No mass or free fluid. Normal bladder. BONES: No significant or acute findings. OTHER: No other significant finding. IMPRESSION: There is no evidence of metastatic disease in the abdomen or pelvis. No acute findings. Nonobstructing intrarenal calculi. TECHNICAL DOCUMENTATION: JOB ID: [id number] Quality ID # [id number]: Final reports with documentation of one or more dose reduction techniques (e.g., Au tomated exposure control, adjustment of the mA and/or kV according to patient size, use of iterative reconstruction technique) 2010 [employer]- All Rights Reserved Reading location - IP/workstation name: [email or web address]
== END ==
LOC: RAD 10:14
PROVIDERS: ATTEND Internal Medicine
DX: C34.2 Malignant neoplasm of middle lobe, bronchus or lung (principal); C79.51 Secondary malignant neoplasm of bone; N20.0 Calculus of kidney
CPT/HCPCS: 71260; 74177

== ENCOUNTER 2020-10-24 08:55 | Outpatient (CLI) | payer MEDICARE, OTHER ==
[~2020-10-24 08:55] MED LIST changes: +ATEZOLIZUMAB 1,200 MG in NORMAL SALINE 250 ML IV PRN; -DENOSUMAB 120 MG in SYRINGE, DISPOSABLE, 1 EACH SUBCUT PRN; +NORMAL SALINE 250 ML @ KVO IV PRN
[2020-10-24 09:27] VITALS: BP 131/57
== END 2020-10-24 10:23 | disposition home or self-care (01) ==
LOC: 5TH 08:55 → II 08:55
PROVIDERS: ATTEND Internal Medicine
DX: Z51.11 Encounter for antineoplastic chemotherapy (principal); C34.2 Malignant neoplasm of middle lobe, bronchus or lung
CPT/HCPCS: 96413; J7050; J9022

== ENCOUNTER 2020-11-07 10:38 | Outpatient (CLI) | payer MEDICARE, OTHER ==
[~2020-11-07 10:38] MED LIST changes: -ATEZOLIZUMAB 1,200 MG in NORMAL SALINE 250 ML IV PRN; -NORMAL SALINE 250 ML @ KVO IV PRN; +NORMAL SALINE 250 ML IV PRN; +ZOLEDRONIC ACID 4 MG/100 ML RTU IV PRN
[2020-11-07 11:26] VITALS: BP 117/59
== END 2020-11-07 11:27 | disposition home or self-care (01) ==
LOC: II 10:38 → 5TH 10:40 → II 11:27
PROVIDERS: ATTEND Internal Medicine
DX: Z51.11 Encounter for antineoplastic chemotherapy (principal); C34.2 Malignant neoplasm of middle lobe, bronchus or lung; C79.51 Secondary malignant neoplasm of bone
CPT/HCPCS: 96365; J3489